=== PATIENT | male | born 1955 | race Caucasian/White ===

== ENCOUNTER 2017-08-07 10:26 | Emergency (ER) | payer OTHER, SELFPAY ==
[2017-08-07 10:27] VITALS: BP 146/87; PULSE 80; RESP 16; TEMP 36.4; O2SAT 97; BMI 34.4
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
[2017-08-07] MEDS: Cephalexin 250 MG Capsule 500 MG PO (11:05)
[2017-08-07] MEDS: Diphth,Pertuss(Acell),Tet Vac 0.5 ML Vial IM (11:06)
== END 2017-08-07 11:28 | disposition home or self-care (01) ==
PROVIDERS: Emergency Provider Emergency Medicine; Family Provider Family Medicine; PCP Family Medicine
DX: T23.072A Burn of unspecified degree of left wrist, initial encounter (principal); T31.0 Burns involving less than 10% of body surface; E11.9 Type 2 diabetes mellitus without complications; I10 Essential (primary) hypertension; E78.00 Pure hypercholesterolemia, unspecified
CPT/HCPCS: 90471; 90715; 99282

== ENCOUNTER → 2020-10-08 | Outpatient (REF) | payer MEDICARE, OTHER, SELFPAY ==
[2020-10-08 12:20] LABS: Hemoglobin 15.1 g/dL (13.0-16.5); Mean Corp Hgb Conc 32.8 g/dL (32-36); Mean Corpuscular Hgb 28.3 pg (27.0-32.0); Mean Corpuscular Volume 86.1 fL (80-94); Platelet Count 311 K/mm3 (150-450); RBC Distribution Width CV 12.6 % (11.6-14.6); RBC Distribution Width SD 39.2 fl (35.1-43.9); Red Blood Count 5.34 M/mm3 (4.6-6.2); White Blood Count 8.3 K/mm3 (4.4-11.0)
[2020-10-08 12:42] LABS: Vitamin D,25 Hydroxy 17.5 ng/mL
[2020-10-08 12:50] LABS: ALB/GLOB Ratio 1.1 RATIO (0.9-2.4); AST(SGOT) 15 U/L (15-37); Alanine Aminotransfer ALT/SGPT 29 U/L (16-61); Alkaline Phosphatase 72 U/L (45-117); Anion Gap 8 (5-15); BUN 15 mg/dL (7-18); Calcium,Total 9.2 mg/dL (8.5-10.1); Chloride 101 mmol/L (98-107); Cholesterol 144 mg/dL (200); Creatinine, Serum 0.88 mg/dL (0.70-1.30); EST Glomerular Filtration Rate 92 mL/min (>60); Est Glom Filt Rate - Afr Amer 111 mL/min (>60); Globulin 3.5 g/dL (2.2-4.2); Glucose 355 mg/dL (74-106); Hemoglobin A1c 12.7 % (3.8-5.6); High Density Lipoprotein 31 mg/dL; PSA,Total - Annual Screen 0.82 ng/mL (0.00-4.00); Potassium 4.3 mmol/L (3.5-5.1); Protein, Total 7.5 g/dL (6.4-8.2); Sodium Level 134 mmol/L (136-145); Triglycerides 441 mg/dL
== END | disposition home or self-care (01) ==
LOC: LABSPEC 12:04
PROVIDERS: PCP Family Medicine; Visit Provider Nurse Practitioner Family
DX: I10 Essential (primary) hypertension (principal); E11.9 Type 2 diabetes mellitus without complications; E66.9 Obesity, unspecified; E55.9 Vitamin D deficiency, unspecified; Z12.5 Encounter for screening for malignant neoplasm of prostate
CPT/HCPCS: 80053; 80061; 82306; 83036; 84153; 85027; G0103

== ENCOUNTER → 2021-09-02 | Outpatient (CLI) | payer MEDICARE, OTHER, SELFPAY ==
[2021-09-02 10:46] LABS: Absolute Lymphocyte Count 1.85 X10^3/uL (0.83-4.51); Absolute Neutrophil Count 4.8 X10^3/uL (2.0-7.7); Basophil# 0.09 X10^3/uL; Basophil% 1.2 % (0-1); Eosinophil# 0.14 X10^3/uL; Eosinophils% 1.8 % (0-5); Hematocrit 45.9 % (40-54); Lymphocyte # 1.85 X10^3/ul (0.83-4.51); Lymphocyte % 24.2 % (19-41); Mean Corp Hgb Conc 32.7 g/dL (32-36); Mean Corpuscular Hgb 28.2 pg (27.0-32.0); Mean Corpuscular Volume 86.3 fL (80-94); Mean Platelet Vol. 10.7 fl (6.2-12.0); Monocyte# 0.68 X10^3/uL; Monocyte% 8.9 % (0-10); NRBC Flagged by Analyzer 0 % (0-5); Neutrophil # 4.82 X10^3/uL (2.7-7.7); Neutrophil % 63.2 % (47-70); Platelet Count 301 K/mm3 (150-450); RBC Distribution Width SD 40.4 fl (35.1-43.9); Red Blood Count 5.32 M/mm3 (4.6-6.2); White Blood Count 7.6 K/mm3 (4.4-11.0)
[2021-09-02 10:57] LABS: ALB/GLOB Ratio 1.3 RATIO (0.9-2.4); AST(SGOT) 17 U/L (15-37); Alanine Aminotransfer ALT/SGPT 31 U/L (16-61); Albumin, Serum 4.2 g/dL (3.2-5.0); Alkaline Phosphatase 59 U/L (45-117); Anion Gap 10 (5-15); BUN 15 mg/dL (7-18); BUN/Creat Ratio 16.6 RATIO (10-20); Calcium,Total 9.8 mg/dL (8.5-10.1); Chloride 97 mmol/L (98-107); Cholesterol 120 mg/dL (200); EST Glomerular Filtration Rate 89 mL/min (>60); Est Glom Filt Rate - Afr Amer 108 mL/min (>60); Globulin 3.2 g/dL (2.2-4.2); Glucose 319 mg/dL (74-106); High Density Lipoprotein 33 mg/dL; Potassium 4.7 mmol/L (3.5-5.1); Protein, Total 7.4 g/dL (6.4-8.2); Sodium Level 135 mmol/L (136-145); Triglycerides 221 mg/dL; Very Low Density Lipoprotein 44 mg/dL (5-40)
[2021-09-02 11:01] LABS: Vitamin B12 454 pg/mL (211-911); Vitamin D,25 Hydroxy 27.5 ng/mL
[2021-09-02 11:04] LABS: Hemoglobin A1c 11.7 % (3.8-5.6)
== END | disposition home or self-care (01) ==
LOC: LABSPEC 10:25
PROVIDERS: PCP Family Medicine; Visit Provider Nurse Practitioner Family
DX: E11.9 Type 2 diabetes mellitus without complications (principal); I10 Essential (primary) hypertension; E55.9 Vitamin D deficiency, unspecified; E78.00 Pure hypercholesterolemia, unspecified
CPT/HCPCS: 80053; 80061; 82306; 82607; 83036; 85025

== ENCOUNTER → 2024-01-25 16:00 | Outpatient (REF) | payer MEDICARE, SELFPAY ==
[2024-01-26 12:57] LABS: Erythrocyte Sedimentation Rate 10 mm/hr (0-20)
[2024-01-26 12:59] LABS: Absolute Lymphocyte Count 1.72 X10^3/uL (0.83-4.51); Absolute Neutrophil Count 4.9 X10^3/uL (2.0-7.7); Basophil% 1.3 % (0-1); Eosinophil# 0.11 X10^3/uL; Eosinophils% 1.5 % (0-5); Hematocrit 41.6 % (40-54); Hemoglobin 13.6 g/dL (13.0-16.5); Lymphocyte # 1.72 X10^3/ul (0.83-4.51); Lymphocyte % 22.8 % (19-41); Mean Corp Hgb Conc 32.7 g/dL (32-36); Mean Corpuscular Hgb 28.6 pg (27.0-32.0); Mean Corpuscular Volume 87.4 fL (80-94); Mean Platelet Vol. 11.7 fl (6.2-12.0); Monocyte# 0.69 X10^3/uL; Monocyte% 9.2 % (0-10); NRBC Flagged by Analyzer 0 % (0-5); Neutrophil # 4.87 X10^3/uL (2.7-7.7); Neutrophil % 64.7 % (47-70); Platelet Count 281 K/mm3 (150-450); RBC Distribution Width CV 13.2 % (11.6-14.6); RBC Distribution Width SD 42.3 fl (35.1-43.9); Red Blood Count 4.76 M/mm3 (4.6-6.2); White Blood Count 7.5 K/mm3 (4.4-11.0)
[2024-01-26 13:06] LABS: Vitamin B12 344 pg/mL (211-911); Vitamin D,25 Hydroxy 15.2 ng/mL
[2024-01-26 13:19] LABS: ALB/GLOB Ratio 1.4 RATIO (0.9-2.4); AST(SGOT) 12 U/L (15-37); Alanine Aminotransfer ALT/SGPT 28 U/L (16-61); Albumin, Serum 4.1 g/dL (3.2-5.0); Alkaline Phosphatase 67 U/L (45-117); Anion Gap 6 (5-15); BUN 18 mg/dL (7-18); BUN/Creat Ratio 22.3 RATIO (10-20); CRP < 2.90 mg/L (0.0-3.0); Calcium,Total 9.6 mg/dL (8.5-10.1); Chloride 101 mmol/L (98-107); Cholesterol 112 mg/dL (200); Creatinine, Serum 0.81 mg/dL (0.70-1.30); EST Glomerular Filtration Rate 101 mL/min (>60); Est Glom Filt Rate - Afr Amer 122 mL/min (>60); Glucose 354 mg/dL (74-106); High Density Lipoprotein 31 mg/dL; Potassium 4.6 mmol/L (3.5-5.1); Protein, Total 7.1 g/dL (6.4-8.2); Sodium Level 136 mmol/L (136-145); Triglycerides 290 mg/dL; Very Low Density Lipoprotein 58 mg/dL (5-40)
[2024-01-27 11:09] LABS: ANTINUCLEAR ANTIBODIES DIRECT Negative (Negative); CRP, High Sensitivity 0.64 mg/L (0.00-3.00)
[2024-01-27 15:08] LABS: Lipoprotein A 16.1 nmol/L (<75.0)
== END ==
LOC: LABSPEC 16:00
PROVIDERS: PCP Family Medicine; Referring Provider Nurse Practitioner Family; Visit Provider Nurse Practitioner Family
DX: M25.511 Pain in right shoulder (principal); E11.9 Type 2 diabetes mellitus without complications; I10 Essential (primary) hypertension; L30.9 Dermatitis, unspecified; E78.5 Hyperlipidemia, unspecified; R53.83 Other fatigue; F32.A Depression, unspecified; G89.29 Other chronic pain
CPT/HCPCS: 80053; 80061; 82306; 82607; 82746; 83036; 83695; 85025; 85652; 86038; 86140; 86141; 86225; 86235

== ENCOUNTER → 2024-04-11 | Outpatient (CLI) | payer MEDICARE, SELFPAY ==
[2024-04-11 16:17] LABS: Absolute Lymphocyte Count 1.67 X10^3/uL (0.83-4.51); Absolute Neutrophil Count 4.4 X10^3/uL (2.0-7.7); Basophil% 1.4 % (0-1); Eosinophil# 0.11 X10^3/uL; Eosinophils% 1.6 % (0-5); Hematocrit 44.9 % (40-54); Hemoglobin 14.7 g/dL (13.0-16.5); Lymphocyte # 1.67 X10^3/ul (0.83-4.51); Lymphocyte % 24.2 % (19-41); Mean Corp Hgb Conc 32.7 g/dL (32-36); Mean Corpuscular Hgb 28.4 pg (27.0-32.0); Mean Corpuscular Volume 86.8 fL (80-94); Mean Platelet Vol. 10.9 fl (6.2-12.0); Monocyte# 0.58 X10^3/uL; Monocyte% 8.4 % (0-10); NRBC Flagged by Analyzer 0 % (0-5); Neutrophil % 63.8 % (47-70); Platelet Count 325 K/mm3 (150-450); RBC Distribution Width CV 13.3 % (11.6-14.6); RBC Distribution Width SD 42.2 fl (35.1-43.9); Red Blood Count 5.17 M/mm3 (4.6-6.2); White Blood Count 6.9 K/mm3 (4.4-11.0)
[2024-04-11 17:44] LABS: ALB/GLOB Ratio 1.1 RATIO (0.9-2.4); AST(SGOT) 20 U/L (15-37); Alanine Aminotransfer ALT/SGPT 30 U/L (16-61); Albumin, Serum 3.9 g/dL (3.2-5.0); Alkaline Phosphatase 62 U/L (45-117); Anion Gap 8 (5-15); BUN 13 mg/dL (7-18); Calcium,Total 10.5 mg/dL (8.5-10.1); Chloride 98 mmol/L (98-107); Cholesterol 236 mg/dL (200); EST Glomerular Filtration Rate 79 mL/min (>60); Est Glom Filt Rate - Afr Amer 95 mL/min (>60); Globulin 3.6 g/dL (2.2-4.2); Glucose 406 mg/dL (74-106); High Density Lipoprotein 40 mg/dL; Potassium 4.9 mmol/L (3.5-5.1); Protein, Total 7.5 g/dL (6.4-8.2); Sodium Level 135 mmol/L (136-145); Triglycerides 356 mg/dL; Very Low Density Lipoprotein 71 mg/dL (5-40)
[2024-04-12 15:32] LABS: Vitamin B12 458 pg/mL (211-911)
[2024-04-14 14:41] LABS: Vitamin D,25 Hydroxy 68.7 ng/mL
== END | disposition home or self-care (01) ==
LOC: LABSPEC 15:08
PROVIDERS: PCP Family Medicine; Referring Provider Nurse Practitioner Family; Visit Provider Nurse Practitioner Family
DX: M25.511 Pain in right shoulder (principal); E11.9 Type 2 diabetes mellitus without complications; I10 Essential (primary) hypertension; L30.9 Dermatitis, unspecified; E78.5 Hyperlipidemia, unspecified; R53.83 Other fatigue; F32.A Depression, unspecified; G89.29 Other chronic pain; E55.9 Vitamin D deficiency, unspecified
CPT/HCPCS: 80053; 80061; 82306; 82607; 82746; 83036; 85025

== ENCOUNTER → 2024-05-26 | Outpatient (CLI) | payer MEDICARE, OTHER, SELFPAY ==
[2024-05-26 09:10] LABS: Absolute Lymphocyte Count 1.47 X10^3/uL (0.83-4.51); Basophil# 0.07 X10^3/uL; Basophil% 1.3 % (0-1); Eosinophil# 0.11 X10^3/uL; Eosinophils% 2.1 % (0-5); Hemoglobin 13.9 g/dL (13.0-16.5); Lymphocyte # 1.47 X10^3/ul (0.83-4.51); Lymphocyte % 28.1 % (19-41); Mean Corp Hgb Conc 33.9 g/dL (32-36); Mean Corpuscular Hgb 28.1 pg (27.0-32.0); Monocyte# 0.55 X10^3/uL; Monocyte% 10.5 % (0-10); NRBC Flagged by Analyzer 0 % (0-5); Neutrophil # 2.99 X10^3/uL (2.7-7.7); Platelet Count 274 K/mm3 (150-450); RBC Distribution Width CV 13.2 % (11.6-14.6); RBC Distribution Width SD 39.9 fl (35.1-43.9); Red Blood Count 4.94 M/mm3 (4.6-6.2); White Blood Count 5.2 K/mm3 (4.4-11.0)
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
[2024-05-26 11:53] LABS: Syphilis Antibodies Nonreactive (Nonreactive)
== END | disposition home or self-care (01) ==
PROVIDERS: Referring Provider Ophthalmology; Visit Provider Ophthalmology
DX: H20.00 Unspecified acute and subacute iridocyclitis (principal); H18.232 Secondary corneal edema, left eye
CPT/HCPCS: 36415; 71046; 81374; 82164; 85025; 86780

== ENCOUNTER 2025-02-10 06:17 | Day surgery (SDC) | payer OTHER, SELFPAY ==
--- NOTE | 2025-02-09 16:20 | PAT.ANE_ITS ---
Pre-Assessment Diagnosis/Proposed Procedure Planned Operative Procedure(s): Colonoscopy Anesthesia History Anesthesia History - educational psychologist: Anesthesia History - educational psychologist Hx Hospitalization No 02/09/25 09:56 Any Problems With Anesthesia No 02/09/25 09:56 Cholinesterase deficiency No 02/09/25 09:56 You/Your Family Experience No 02/09/25 09:56 fever (hyperthermia) with Relationship Recent Exposure to Contagious No 01/24/14 06:12 Disease Does patient have nerve No 02/09/25 09:56 stimulator Patient instructed to have device shut off --Does patient have Pacemaker or ICD? When Was Last Pacemaker Check QUESTION #4 FULL TEXT: You/Your Family Experience fever (hyperthermia) with Anesthesia Last Oral Intake Last Oral intake: Last Oral Intake NPO since Meds taken in AM with sips of water? Meds patient instructed to take am of surgery PONV PONV - educational psychologist: PONV - educational psychologist Female No 02/09/25 09:56 HX of Motion Sickness No 02/09/25 09:56 HX of N/V After Surgery No 02/09/25 09:56 Non-Smoker Yes 02/09/25 09:56 Duration of Surgery greater No 02/09/25 09:56 than 60 minutes Number of Risk Factors 1 02/09/25 09:56 PONV Score Low Risk 02/09/25 09:56 Height & Weight Height & Weight: Anesthesia: Height & Weight Height 5 ft 4 in 01/02/25 10:02 Respiratory Assessment Respiratory Assessment - educational psychologist: Respiratory Tract Infection Hx - educational psychologist Hx Respiratory Tract Infection No 02/09/25 09:56 STOP Sleep Apnea STOP Sleep Apnea - educational psychologist: STOP Sleep Apnea - educational psychologist Hx Hypertension Yes: ON MEDS -CONTROLLED 02/09/25 09:56 Hx Sleep Apnea No 02/09/25 09:56 CPAP No 01/24/14 09:36 BIPAP No 01/16/14 09:14 Do you snore loudly (louder No 02/09/25 09:56 than talking or can be heard Do you often feel tired/ No 02/09/25 09:56 fatigued/ sleepy during daytime? Has anyone observed you stop No 02/09/25 09:56 breathing during sleep? STOP Results Negative 02/09/25 09:56 QUESTION #5 FULL TEXT : Do you snore loudly (louder than talking or can be heard through closed doors)? 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 Specify any problems Hx of Preganancy in last 3 N/A 02/09/25 09:56 Months Nurse Filling Out Transfusion [email or web address] 02/09/25 09:56 & Questions: Date: 02/09/25 02/09/25 09:56 Time: 09:58 02/09/25 09:56 Patient unable to answer at this time (ie. confused, unrespo /Reproduction History /Reproductive History - educational psychologist: /Reproductive Hx- educational psychologist Hx Now No 02/09/25 09:56 Gestational Age (in weeks): EDC: Hx Hx Para Hx Section SAB No 02/09/25 09:56 Does the father of the baby or his family experience fever w Father of the baby Malignant Hypertension history comment [facility] Medical History (Updated 02/09/25 @ 09:56 by Irene Simmons) Wears glasses Rash Arthritis Dietary restriction Non-smoker Colon cancer screening HTN (hypertension) Diabetes High cholesterol Home Medications ?Medication ?Instructions ?Recorded ?Last Taken ?Type atenolol 25 mg tablet 25 mg PO DAILY 03/25/13 1204/08 05:00 History metformin 1,000 mg tablet 1,000 mg PO BID 03/25/13 Unk nown History aspirin 81 mg tablet,delayed 81 mg PO DAILY@0800 07/06 Unknown History release fenofibrate nanocrystallized 145 145 mg PO QHS 4 Unknown History mg tablet atorvastatin 40 mg tablet (Lipitor) 40 mg PO QDAY 12/24 Unknown History empagliflozin 25 mg tablet 25 mg PO QAM 01/02/25 Unkno wn History glipizide 10 mg tablet 10 mg PO QDAY 01/02/25 Unkno wn History insulin glargine 100 unit/mL 10 unit subcut QPM Unknown History subcutaneous solution (Lantus U-100 Insulin) lisinopril 20 1 tab PO QDAY 01/02/25 Unkno wn History mg-hydrochlorothiazide 12.5 mg tablet Allergy/AdvReac Type Severity Reaction Status Date / Time No Known Allergies Allergy Verified 02/09/25 09:48 Family History (Updated 01/02/25 @ 10:02 by Zena Clark) Father Heart disease Brother No problems noted. Surgical History (Updated 01/02/25 @ 10:01 by Zena Clark) Status post replacement of left shoulder joint S/P right knee arthroscopy S/P bilateral inguinal hernia repair Social History (Updated 01/02/25 @ 10:02 by Zena Clark) Smoking Status: Never smoker Smokeless tobacco user: chewing tobacco alcohol intake: never Audit: Pertinent Findings Pertinent Findings EKG Perinent findings: EKG 07/06/2013. Normal sinus rhythm. Normal EKG. Recommendation Anesthesia Recommendation Anesthesia recommendation: OPTIMIZED for anesthesia
[2025-02-10] VITALS (8 sets, daily range): BP systolic 103–147; BP diastolic 70–85; PULSE 80–86; RESP 16–18; TEMP 36.2–36.3; O2SAT 93–96; BMI 27.8
--- OUTSIDE RECORDS SUMMARY | 2025-02-10 06:19 | XMS RPT_ITS | CCD ---
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 Luke Primary Care Provider Evens CAMPOS-CZuleyma Attending Provider Unava ilmarjorie Horner PREPARED FOODS SUPERVISOR-CZuleyma Referring Provider [facility] Care Physician, No Primary Primary Care Provider Unavailable Bruno JEONG, Dr. Maurer Attending Provider Dr. Erasto Carr MD Referring Provider [phone] Care Physician, No Primary Referring [facility], [place] Primary Care Unavailable Yordan Silveira Attending Unavailable Care Physician, No Primary [facility] Attending Unavailable Erasto Carr Referring Unavailable [facility], [place] Primary Care Unavailable Yordan Silveira Attending Unavailable Ti Russell Primary Care Unavailable Zuleyma Horner NP Attending Zuleyma Petersen NP Referring UnavailTi Ghosh Primary Care Unavailable Zuleyma Horner NP Attending UnavailZuleyma Crystal NP Referring Unavailabl e Medications Current Medications Medication Drug Class(es) Dates Sig (Normalized) Sig (Original) acetaminophen 325 mg / oxyCODONE hydrochloride 5 mg oral tablet (1 source) Opioid Agonist Start: 4 Oxycodone-Acetaminop hen 1 TABLET tablet Active 1 - 2 {tbl} PO EVERY 4 HOURS NEEDED as needed for Pain 60 January 24, 2014 1:00am alogliptin 25 mg / pioglitazone 30 mg oral tablet (1 source) Peroxisome Proliferator Receptor alpha Agonist, Peroxisome Proliferator Receptor gamma Agonist, Thiazolidinedione Start: 4 Alogliptin-Pioglitaz one (Oseni 25-30 Mg Tablet) 1 EACH tablet Active 1 NMA PO DAILY January 16, 2014 1:00am aspirin 81 mg delayed release oral tablet (1 source) Platelet Aggregation Inhibitor, Nonsteroidal Anti-inflammatory Drug Start: 4 take 1 tablet by mouth once daily Aspirin 81 MG tablet Active 81 mg PO DAILY@0800 July 06, 2013 12:00am atenolol 25 mg oral tablet (1 source) beta-Adrenergic Camelia Start: 4 take 1 tablet by mouth once daily Atenolol 25 MG tablet Active 25 mg PO DAILY March 25, 2013 1:00am cephalexin 500 mg oral capsule (1 source) Cephalosporin Antibacterial Start: 8 take 1 capsule by mouth every six hours Cephalexin 500 MG capsule Active 500 mg PO EVERY 6 HOURS August 07, 2017 12:00am docusate sodium 100 mg oral capsule (1 source) Start: 4 take 1 capsule by mouth twice daily as needed for constipation Docusate Sodium (Colace) 100 MG capsule Active 100 mg PO TWICE DAILY NEEDED as needed for Constipation January 24, 2014 1:00am fenofibrate 145 mg oral tablet (1 source) Peroxisome Proliferator Receptor alpha Agonist Start: 4 take 1 tablet by mouth at bedtime Fenofibrate Nanocrystallized 145 MG tablet Active 145 mg PO AT BEDTIME July 06, 2013 12:00am lisinopril 5 mg oral tablet (1 source) Angiotensin Converting Enzyme Inhibitor Start: 4 take 1 tablet by mouth once daily Lisinopril 5 MG tablet Active 5 mg PO DAILY March 25, 2013 1:00am metFORMIN hydrochloride 1000 mg oral tablet (1 source) Biguanide Start: 4 take 1 tablet by mouth twice daily Metformin 1,000 MG tablet Active 1000 mg PO TWICE A DAY March 25, 2013 1:00am promethazine hydrochloride 25 mg oral tablet (1 source) Phenothiazine Start: 4 take 1 tablet by mouth every four hours as needed for nausea Promethazine 25 MG tablet Active 25 mg PO EVERY 4 HOURS NEEDED as needed for Nausea January 24, 2014 1:00am simvastatin 5 mg oral tablet (1 source) HMG-CoA Reductase Inhibitor Start: 4 take 1 tablet by mouth at bedtime Simvastatin (Zocor) 5 MG tablet Active 5 mg PO AT BEDTIME March 25, 2013 1:00am traMADol hydrochloride 50 mg oral tablet (1 source) Opioid Agonist Start: 4 take 1 tablet by mouth once daily Tramadol 50 MG tablet Active 50 mg PO DAILY July 06, 2013 12:00am Problems Active Problems Problem Classification Problem Date Documented Da te Episodic/Chronic Inflammation; infection of eye (except that caused by tuberculosis or sexually transmitteddisease) (1 source) Unspecified acute and subacute iridocyclitis; Translations: [Unspecified acute and subacute iridocyclitis] Onset: 12-21-2024 Episodic Other injuries and conditions due to external causes (1 source) Injury of shoulder region; Translations: [Unspecified injury of shoulder and upper arm, unspecified arm, initial encounter] 03-25-2013 Episodic Past or Other Problems Problem Classification Problem Date Documented Da te Episodic/Chronic Other non-traumatic joint disorders (1 source) Pain in right shoulder; Translations: [Pain in right shoulder] Onset: 04-26-2024 Episodic Results Test Name Value Interpretation Reference Range Facility Surgery Visit Reporton 01-02 Surgery Visit Report [facility] [facility] [place] [address] OFFICE VISIT Date of Service: 01/02/25 MR#: [id number] Acct: [id number] Name: LAMBERTO TEJADA Rep #: [id number] : 1955 Provider: Dr. Yordan avalos MD Age/Sex: 69/M Location: [facility] Status: Signed Intake Vital Signs 08/07/17 10:27 01/02/25 10:02 Height 5 ft 4 in 5 ft 4 in Weight: 167 lb BMI 28.6 BP 166/82 H Blood Pressure Location Rt brachial Position Sitting Respiration 16 Intake Visit Reasons: COLONOSCOPY Chief Complaint: c-scope Teller Coordinator Required: No Is patient in pain?: No Allergies No Known Allergies Allergy (Verified 01/02/25 10:03) Medications ???Medication ???Instructions ???Recorded ???Confirmed ???Type atenolol 25 mg tablet 25 mg PO DAILY 03/25/13 01/02/25 H istory metformin 1,000 mg tablet 1,000 mg PO BID 03/25/13 01/02/25 History aspirin 81 mg tablet,delayed 81 mg PO DAILY@0800 07/06/1301/02 History release fenofibrate nanocrystallized 145 145 mg PO QHS 07/06/13 01/02/25 Hi story mg tablet atorvastatin 40 mg tablet (Lipitor) 40 mg PO QDAY 01/02/25 01/02/25 History empagliflozin 25 mg tablet 25 mg PO QAM 01/02/25 01/02/25 His tory glipizide 10 mg tablet 10 mg PO QDAY 01/02/25 01/02/25 Hi story insulin glargine 100 unit/mL 10 unit subcut QPM 01/02/25 History subcutaneous solution (Lantus U-100 Insulin) lisinopril 20 1 tab PO QDAY 01/02/25 01/02/25 Hi story mg-hydrochlorothiazid e 12.5 mg tablet Have you fallen in the past year?: No PFSH Medical History (Updated 01/02/25 @ 12:[address] Yordan Silveira MD) Colon cancer screening HTN (hypertension) Diabetes High cholesterol Surgical History (Updated 01/02/25 @ 10:01 by Zena Clark) Status post replacement of left shoulder joint S/P right knee arthroscopy S/P bilateral inguinal hernia repair Family History (Updated 01/02/25 @ 10:02 by Zena Clark) Father Heart disease Brother No problems noted. Social History (Updated 01/02/25 @ 10:02 by Zena Clark) Smoking Status: Never smoker Smokeless tobacco user: chewing tobacco alcohol intake: never HPI HPI HPI: The patient is a 69-year-old male who is being seen today to schedule colonoscopy. He has never had a colonoscopy previously. He denies any GI issues or complaints. No blood in his stools. No black or tarry stools. No family history of colon polyps or colon cancers to his knowledge ROS General General: No weight change, appetite, fatigue, colon cancer, breast cancer or weakness HEENT HEENT: No difficulty swallowing, eye injury, eye surgery, swollen glands or hoarseness Endo Endocrine: Yes diabetes mellitus; No thyroid disease, thyroid cancer, Hair loss, heat intolerance or cold intolerance Skin Skin: Yes rash; No changing moles Breast Breast: No left breast lump, right breast lump, nipple discharge, breast pain, abnormal mammogram, abnormal US or breast enlargement Musc Musculoskeletal: Yes arthritis; No back problems, rheumatoid arthritis, gout or joint pain Cardio Cardiovascular: Yes high blood pressure; No murmur, pacemaker, heart disease, atrial fibrillation, heart attack, heart stent, palpitations, shortness of breath with exertion or chest pain Psych Psychiatric: No depression, anxiety or hearing voices Resp Respiratory: No shortness of breath, No sleep apnea, No cough, No COPD, No asthma, No emphysema and No wheezing Gastro Gastrointestinal: No abdominal pain, No nausea or vomiting, No diarrhea, No constipation, No blood in stool, No acid reflux, No hemorrhoids, No ulcers, No gallbladder problem and No black,tarry stools Lazaro Hematologic: Yes blood thinners, No blood disorders, No bleeding, No anemia and No blood clots Neuro Neurologic: No system reviewed and no additional complaints, except as documented, No as per HPI, No abnormal gait, No abnormal hearing, No abnormal movements, No abnormal speech, No behavioral changes, No burning sensations, No confusion, No convulsions, No disequilibrium, No dizziness, No localized weakness, No frequent falls, No headache(s), No lack of coordination, No loss of vision, No memory loss, Yes numbness, No other visual disturbances, No radicular pain, No restless legs, No sensory deficit, No syncope, Yes tingling, No tremor(s), No weakness and No other Exam Const General: cooperative, comfortable and no acute distress [facility] Head: normal to inspection Eyes General: appearance normal, both eyes and all related structures Neck Neck: normal visual inspection Resp Effort Inspection: normal respiratory effort and able to speak in complete sentences Assessment and Plan Assessment and Plan (1) Colon cancer screening: Status: Ac (more content not included)... Normal [facility] Angiotensin Convert Enzymeon 06-03-2024 ANGIOT-CONV.ENZ < 15 Normal 14-[address] [facility] Comment on above: Performed By: #### L 506.1000, L500.4050, L500.4100, L100.0100, L501.9985, L506.0250, L503.0105 #### [facility] [address] [place], [address] HLA B27on 06-03-2024 HLA B27 Negative Normal . [facility] Comment on above: Result Comment: HLA- B*27 Negative B27 allele interpretation for all loci based on IMGT/HLA database version 3.58 This test was developed and its performance characteristics determined by [facility]. It has not been cleared or approved by the Food and Drug Administration. The FDA has determined that such clearance or approval is not necessary. [facility] CLIA ID Number [id number] This test was performed using Polymerase Chain Reaction (PCR) and Sequence Specific Oligonucleotide Probes (SSOP) technique. Sequence Based Typing (SBT) may be used as a supplemental method when necessary. If you have questions, please call HLA customer service at or email at [email or web address]. Performed By: #### L 506.1000, L500.4050, L500.4100, L100.0100, L501.9985, L506.0250, L503.0105 #### [facility] [address] [place], [address] Treponema palladium Ab (FTA) on 05-31-2024 T PALLIDUM-FTA Normal [facility] Comment on above: Result Comment: TEST RESULTS LIMITS Treponema pallidum Antibodies Non Reactive Non Reactive TESTING PERFORMED AT [facility]. ORIGINAL REPORT ON FILE IN LAB CONTAINS ADDITIONAL TEST SITE INFORMATION. Performed By: #### L 506.1000, L500.4050, L500.4100, L100.0100, L501.9985, L506.0250, L503.0105 #### [facility] [address] [place], [address] [facility].on 05-30-2024 [facility] Misc. COMMENT Normal . [facility] Comment on above: Order Comment: [id number] LYSOZYME TIGER RT Result Comment: Test Ordered: [id number] Lysozyme, Serum Lysozyme, Serum 6.6 ug/mL Reference Range: 3.6-8.1 Performed at: - [address] [id number] Transfusion Nurse: Oswaldo Mayer MD, Phone: [phone] Performed at: [facility] [address] [id number] Transfusion Nurse: Rory Mejias PhD, Phone: [phone] Performed By: #### L 509.8002, L3100.6900, L100.0100, L801.4400, L3410.1400, L3410.9998 #### [facility] [address] [place], [address] Absolute neutrophil countOrd ered By: Erasto Carr on 05-26-2024 Neutrophils (Bld) [#/Vol] 3.0 10*3/uL 2.0-7.[address] [facility] Basophil percentageOrdered B y: Erasto Carr on 05-26-2024 Basophils/100 WBC (Bld) 1.3 % High 0-1 [facility] CBC W/Diff, Automatedon 04- Absolute Lymph 1.47 X10 3/uL Normal 0.83-4.[address] [facility] Comment on above: Performed By: #### L 509.8002, L3100.6900, L100.0100, L801.4400, L3410.1400, L3410.9998 #### [facility] [address] [place], [place], [address] Absolute Neut 3.0 X10 3/uL Normal 2.0-7.[address] [facility] Comment on above: Performed By: #### L 509.8002, L3100.6900, L100.0100, L801.4400, L3410.1400, L3410.9998 #### [facility] [address] [place], [address] Basophils/100 WBC (Bld) 1.3 % High 0-1 [facility] Comment on above: Performed By: #### L 509.8002, L3100.6900, L100.0100, L801.4400, L3410.1400, L3410.9998 #### [facility] [address] [place], [address] Eosinophils/100 WBC (Bld) 2.1 % Normal 0-[address] [facility] Comment on above: Performed By: #### L 509.8002, L3100.6900, L100.0100, L801.4400, L3410.1400, L3410.9998 #### [facility] [address] [place], [address] Erythrocyte distribution width (RBC) [Ratio] 13.2 % Normal 11.6-14.[address] [facility] Comment on above: Performed By: #### L 509.8002, L3100.6900, L100.0100, L801.4400, L3410.1400, L3410.9998 #### [facility] [address] [place], [address] Hematocrit (Bld) [Volume fraction] 41.0 % Normal 40-[address] [facility] Comment on above: Performed By: #### L 509.8002, L3100.6900, L100.0100, L801.4400, L3410.1400, L3410.9998 #### [facility] [address] [place], [address] Hemoglobin (Bld) [Mass/Vol] 13.9 g/dL Normal 13.0-16.[address] [facility] Comment on above: Performed By: #### L 509.8002, L3100.6900, L100.0100, L801.4400, L3410.1400, L3410.9998 #### [facility] [address] [place], [address] IG% 1.000 High 0.0-0.[address] [facility] Comment on above: Result Comment: IG% - Immature Granulocytes (promyelocytes, myelocytes and metamyelocytes) > 1% indicates that a LEFT SHIFT is Present. Performed By: #### L 509.8002, L3100.6900, L100.0100, L801.4400, L3410.1400, L3410.9998 #### [facility] [address] [place], [address] Lymphocytes/100 WBC (Bld) 28.1 % Normal 19-[address] [facility] Comment on above: Performed By: #### L 509.8002, L3100.6900, L100.0100, L801.4400, L3410.1400, L3410.9998 #### [facility] [address] [place], [address] MCH (RBC) [Entitic mass] 28.1 pg Normal 27.0-32.[address] [facility] Comment on above: Performed By: #### L 509.8002, L3100.6900, L100.0100, L801.4400, L3410.1400, L3410.9998 #### [facility] [address] [place], [address] MCHC (RBC) [Mass/Vol] 33.9 g/dL Normal 32-36 [facility] Comment on above: Performed By: #### L 509.8002, L3100.6900, L100.0100, L801.4400, L3410.1400, L3410.9998 #### [facility] [address] [place], [address] MCV (RBC) [Entitic vol] 83.0 fL Normal 80-94 [facility] Comment on above: Performed By: #### L 509.8002, L3100.6900, L100.0100, L801.4400, L3410.1400, L3410.9998 #### [facility] [address] [place], [address] Monocytes/100 WBC (Bld) 10.5 % High 0-10 [facility] Comment on above: Performed By: #### L 509.8002, L3100.6900, L100.0100, L801.4400, L3410.1400, L3410.9998 #### [facility] [address] [place], [address] Neutrophils/100 WBC (Bld) 57.0 % Normal 47-[address] [facility] Comment on above: Performed By: #### L 509.8002, L3100.6900, L100.0100, L801.4400, L3410.1400, L3410.9998 #### [facility] [address] [place], [address] Nucleated RBC (Bld) [#/Vol] 0 10*3/uL Normal 0-[address] [facility] Comment on above: Performed By: #### L 509.8002, L3100.6900, L100.0100, L801.4400, L3410.1400, L3410.9998 #### [facility] [address] [place], [address] Platelet mean volume (Bld) [Entitic vol] 10.0 fL Normal 6.2-12.[address] [facility] Comment on above: Performed By: #### L 509.8002, L3100.6900, L100.0100, L801.4400, L3410.1400, L3410.9998 #### [facility] [address] [place], [address] Platelets (Bld) [#/Vol] 274 10*3/uL Normal 150-[address] [facility] Comment on above: Performed By: #### L 509.8002, L3100.6900, L100.0100, L801.4400, L3410.1400, L3410.9998 #### [facility] [address] [place] [place], [address] RBC (Bld) [#/Vol] 4.94 10*6/uL Normal 4.6-6.2 [facility] Comment on above: Performed By: #### L 509.8002, L3100.6900, L100.0100, L801.4400, L3410.1400, L3410.9998 #### [facility] [address] [place], [address] RDW SD 39.9 fl Normal 35.1-43.[address] [facility] Comment on above: Performed By: #### L 509.8002, L3100.6900, L100.0100, L801.4400, L3410.1400, L3410.9998 #### [facility] [address] [place] [place], [address] WBC (Bld) [#/Vol] 5.2 10*3/uL Normal 4.4-11.0 [facility] Comment on above: Performed By: #### L 509.8002, L3100.6900, L100.0100, L801.4400, L3410.1400, L3410.9998 #### [facility] [address] [place], [address] Chest PA and Lateralon 05-26 Chest PA and Lateral [facility] [address] [place] [address] Chest PA and Lateral MR#: [id number] Acct: [id number] Name: LAMBERTO TEJADA Rep #: [id number] : 1955 M 69 From: Almas Mcqueen MD PCP: Care Physician,No Primary Status: REG CLI Study: Chest PA and Lateral Date of Exam: 05/26/24 Exam# [id number] Ordering Dr: Erasto Carr MD PROCEDURE: CHEST PA AND LATERAL 05/26/2024 REASON FOR EXAM: ACUTE UVEITIS/CORNEAL EDEMA TECHNIQUE: Frontal and lateral views of the chest. COMPARISON: None available FINDINGS: The lungs appear clear. Pulmonary vascularity appears within limits. No pleural effusion. The cardiac and mediastinal contours appear within limits. Suggestion of bilateral shoulder osteoarthrosis. RAD/Chest PA and Lateral IMPRESSION: No evidence of acute disease. Reading Location: [id number] CC: Dr. Erasto Carr MD; No Primary Care Physician [employer]: Signed Normal [facility] Eosinophil percentageOrdered By: Erasto Carr on 05-26-2024 Eosinophils/100 WBC (Bld) 2.1 % 0-[address] [facility] Erythrocyte distribution wid th (RBC) [Ratio]Ordered By: Erasto Carr on 05-26-2024 Erythrocyte distribution width (RBC) [Entitic vol] 39.9 fL 35.1-43.[address] [facility] Erythrocyte distribution wid th ratioOrdered By: Erasto Carr on 05-26-2024 Erythrocyte distribution width (RBC) [Ratio] 13.2 % 11.6-14.[address] [facility] Hematocrit Auto (Bld) [Volum e fraction]Ordered By: Erasto Carr on 05-26-2024 Hematocrit (Bld) [Volume fraction] 41.0 % 40-[address] [facility] Hemoglobin measurementOrdere d By: Erasto Carr on 05-26-2024 Hemoglobin (Bld) [Mass/Vol] 13.9 g/dL 13.0-16.[address] [facility] Immature granulocytes/100 WB C Auto (Bld)Ordered By: Erasto Carr on 05-26-2024 Immature granulocytes/100 WBC (Bld) 1.000 % High 0.0-0.[address] [facility] Comment on above: IG% - Immature Granu locytes (promyelocytes, myelocytes and metamyelocytes) > 1% indicates that a LEFT SHIFT is Present. Lymphocytes Auto (Unsp spec) [#/Vol]Ordered By: Erasto Carr on 05-26-2024 Lymphocytes (Bld) [#/Vol] 1.47 10*3/uL 0.83-4.[address] [facility] Lymphocytes/100 WBC Auto (Un sp spec)Ordered By: Erasto Carr on 05-26-2024 Lymphocytes/100 WBC (Bld) 28.1 % 19-[address] [facility] MCV (mean corpuscular volume ) determinationOrdered By: Erasto Carr on 05-26-2024 MCV (RBC) [Entitic vol] 83.0 fL 80-94 [facility] Mean corpuscular hemoglobin (MCH) determinationOrdered By: Erasto Carr on 05-26-2024 MCH (RBC) [Entitic mass] 28.1 pg 27.0-32.[address] [facility] Mean corpuscular hemoglobin concentration (MCHC) determinationOrdered By: Erasto Carr on 05-26-2024 MCHC (RBC) [Mass/Vol] 33.9 g/dL 32-36 [facility] Mean platelet volume determi nationOrdered By: Erasto Carr on 05-26-2024 Platelet mean volume (Bld) [Entitic vol] 10.0 fL 6.2-12.[address] [facility] Monocyte percentageOrdered B y: Erasto Carr on 05-26-2024 Monocytes/100 WBC (Bld) 10.5 % High 0-10 [facility] Neutrophil percentageOrdered By: Erasto Carr on 05-26-2024 Neutrophils/100 WBC (Bld) 57.0 % 47-[address] [facility] Nucleated red blood cell per centageOrdered By: Erasto Carr on 05-26-2024 Nucleated RBC/100 WBC (Bld) [Ratio] 0 % 0-[address] [facility] Platelet countOrdered By: Mich Carr on 05-26-2024 Platelets (Bld) [#/Vol] 274 10*3/uL 150-[address] [facility] RBC Auto (Bld) [#/Vol]Ordere d By: Erasto Carr on 05-26-2024 RBC (Bld) [#/Vol] 4.94 10*6/uL 4.6-6.2 [facility] Syphilis Antibodieson 2024 Syphilis Abs Non-Reactive Normal Nonreactive [facility] Comment on above: Performed By: #### L 509.8002, L3100.6900, L100.0100, L801.4400, L3410.1400, L3410.9998 #### [facility] [address] [place], [address] T. pallidum Ab IF Ql (S)Orde red By: Erasto Carr on 05-26-2024 Treponema pallidum Ab (FTA-ABS) See comment [facility] Comment on above: TEST RESULTS LIMITST reponema pallidumAntibodies Non Reactive Non Reactive TESTING PERFORMED AT [facility]. ORIGINAL REPORT ON FILE IN LAB CONTAINS ADDITIONAL TEST SITE INFORMATION. T. pallidum abOrdered By: Mich Carr on 05-26-2024 Syphilis Total Antibody Non-Reactive Nonreactiv e [facility] White blood cell (WBC) count Ordered By: Erasto Carr on 05-26-2024 WBC (Bld) [#/Vol] 5.2 10*3/uL 4.4-11.0 [facility] Vitamin D,25 Hydroxyon 04-14 Vitamin D 25-OH 68.7 ng/mL Normal [facility] Comment on above: Result Comment: Edna min D 25(OH) Status Range Deficiency <20 ng/mL (50nmol/L) Insufficiency 20 - 30 ng/mL (50 - 75 nmol/L) Sufficiency 30 - 100 ng/mL (75 - 250 nmol/L) Toxicity >100 ng/mL (>250 nmol/L) Performed By: #### L 506.1000, L500.4050, L500.4100, L100.0100, L501.9985, L506.0250, L503.0105 #### [facility] Laboratory [address] [place], [address] Vitamin B12on 04-12-2024 Cobalamin (Vitamin B12) [Mass/Vol] 458 pg/mL Normal 211-[address] [facility] Comment on above: Performed By: #### L 506.1000, L500.4050, L500.4100, L100.0100, L501.9985, L506.0250, L503.0105 #### [facility] Laboratory [address] [place], [address] [id number] DOrdered By: Alexys Horner on 04-11-2024 Vitamin D 25-Hydroxy 68.7 ng/mL [facility] Comment on above: Vitamin D 25(OH) Sta tus Range Deficiency <20 ng/mL (50nmol/L) Insufficiency 20 - 30 ng/mL (50 - 75 nmol/L) Sufficiency 30 - 100 ng/mL (75 - 250 nmol/L) Toxicity >100 ng/mL (>250 nmol/L) Absolute neutrophil countOrd ered By: Zuleyma Horner on 04-11-2024 Neutrophils (Bld) [#/Vol] 4.4 10*3/uL 2.0-7.[address] [facility] Albumin to globulin ratioOrd ered By: Zuleyma Horner on 04-11-2024 Albumin/Globulin [Mass ratio] 1.1 {ratio} 0.9-2.[address] [facility] Basophil percentageOrdered B y: Zuleyma Horner on 04-11-2024 Basophils/100 WBC (Bld) 1.4 % High 0-1 [facility] Bilirubin, totalOrdered By: Zuleyma Horner on 04-11-2024 Bilirubin [Mass/Vol] 0.60 mg/dL 0.20-1.00 [facility] Comment on above: For patients on eltr ombopag therapy, use of Dimension [place] TBIL is not recommended. Blood urea nitrogen (BUN)/cr eatinine ratioOrdered By: Zuleyma Horner on 04-11-2024 Urea nitrogen/Creatinine [Mass ratio] 13.0 mg/mg 10-[address] [facility] CBC W/Diff, Automatedon - Absolute Lymph 1.67 X10 3/uL Normal 0.83-4.[address] [facility] Comment on above: Performed By: #### L 506.1000, L500.4050, L500.4100, L100.0100, L501.9985, L506.0250, L503.0105 #### [facility] Laboratory [address] [place], [address] Absolute Neut 4.4 X10 3/uL Normal 2.0-7.[address] [facility] Comment on above: Performed By: #### L 506.1000, L500.4050, L500.4100, L100.0100, L501.9985, L506.0250, L503.0105 #### [facility] Laboratory [address] [place], [address] Basophils/100 WBC (Bld) 1.4 % High 0-1 [facility] Comment on above: Performed By: #### L 506.1000, L500.4050, L500.4100, L100.0100, L501.9985, L506.0250, L503.0105 #### [facility] Laboratory [address] [place], [address] Eosinophils/100 WBC (Bld) 1.6 % Normal 0-[address] [facility] Comment on above: Performed By: #### L 506.1000, L500.4050, L500.4100, L100.0100, L501.9985, L506.0250, L503.0105 #### [facility] Laboratory [address] [place], [address] Erythrocyte distribution width (RBC) [Ratio] 13.3 % Normal 11.6-14.[address] [facility] Comment on above: Performed By: #### L 506.1000, L500.4050, L500.4100, L100.0100, L501.9985, L506.0250, L503.0105 #### [facility] [address] [facility] [place], [address] Hematocrit (Bld) [Volume fraction] 44.9 % Normal 40-[address] [facility] Comment on above: Performed By: #### L 506.1000, L500.4050, L500.4100, L100.0100, L501.9985, L506.0250, L503.0105 #### [facility] Laboratory [address] [place], [address] Hemoglobin (Bld) [Mass/Vol] 14.7 g/dL Normal 13.0-16.[address] [facility] Comment on above: Performed By: #### L 506.1000, L500.4050, L500.4100, L100.0100, L501.9985, L506.0250, L503.0105 #### [facility] Laboratory [address] [place], [address] IG% 0.600 Normal 0.0-0.[address] [facility] Comment on above: Result Comment: IG% - Immature Granulocytes (promyelocytes, myelocytes and metamyelocytes) > 1% indicates that a LEFT SHIFT is Present. Performed By: #### L 506.1000, L500.4050, L500.4100, L100.0100, L501.9985, L506.0250, L503.0105 #### [facility] Laboratory [address] [place], [address] Lymphocytes/100 WBC (Bld) 24.2 % Normal 19-[address] [facility] Comment on above: Performed By: #### L 506.1000, L500.4050, L500.4100, L100.0100, L501.9985, L506.0250, L503.0105 #### [facility] Laboratory [address] [place], [address] MCH (RBC) [Entitic mass] 28.4 pg Normal 27.0-32.[address] [facility] Comment on above: Performed By: #### L 506.1000, L500.4050, L500.4100, L100.0100, L501.9985, L506.0250, L503.0105 #### [facility] Laboratory [address] [place], [address] MCHC (RBC) [Mass/Vol] 32.7 g/dL Normal 32-36 [facility] Comment on above: Performed By: #### L 506.1000, L500.4050, L500.4100, L100.0100, L501.9985, L506.0250, L503.0105 #### [facility] Laboratory [address] [place], [address] MCV (RBC) [Entitic vol] 86.8 fL Normal 80-94 [facility] Comment on above: Performed By: #### L 506.1000, L500.4050, L500.4100, L100.0100, L501.9985, L506.0250, L503.0105 #### [facility] Laboratory [address] [place], [address] Monocytes/100 WBC (Bld) 8.4 % Normal 0-10 [facility] Comment on above: Performed By: #### L 506.1000, L500.4050, L500.4100, L100.0100, L501.9985, L506.0250, L503.0105 #### [facility] Laboratory [address] [place], [address] Neutrophils/100 WBC (Bld) 63.8 % Normal 47-[address] [facility] Comment on above: Performed By: #### L 506.1000, L500.4050, L500.4100, L100.0100, L501.9985, L506.0250, L503.0105 #### [facility] Laboratory [address] [place], [address] Nucleated RBC (Bld) [#/Vol] 0 10*3/uL Normal 0-[address] [facility] Comment on above: Performed By: #### L 506.1000, L500.4050, L500.4100, L100.0100, L501.9985, L506.0250, L503.0105 #### [facility] Laboratory [address] [place], [address] Platelet mean volume (Bld) [Entitic vol] 10.9 fL Normal 6.2-12.[address] [facility] Comment on above: Performed By: #### L 506.1000, L500.4050, L500.4100, L100.0100, L501.9985, L506.0250, L503.0105 #### [facility] Laboratory [address] [place], [address] Platelets (Bld) [#/Vol] 325 10*3/uL Normal 150-[address] [facility] Comment on above: Performed By: #### L 506.1000, L500.4050, L500.4100, L100.0100, L501.9985, L506.0250, L503.0105 #### [facility] Laboratory [address] [place], [address] RBC (Bld) [#/Vol] 5.17 10*6/uL Normal 4.6-6.2 [facility] Comment on above: Performed By: #### L 506.1000, L500.4050, L500.4100, L100.0100, L501.9985, L506.0250, L503.0105 #### [facility] Laboratory [address] [place], [address] RDW SD 42.2 fl Normal 35.1-43.[address] [facility] Comment on above: Performed By: #### L 506.1000, L500.4050, L500.4100, L100.0100, L501.9985, L506.0250, L503.0105 #### [facility] Laboratory [address] [place], [address] WBC (Bld) [#/Vol] 6.9 10*3/uL Normal 4.4-11.0 [facility] Comment on above: Performed By: #### L 506.1000, L500.4050, L500.4100, L100.0100, L501.9985, L506.0250, L503.0105 #### [facility] Laboratory [address] [place], [address] Carbon dioxide measurementOr dered By: Zuleyma Horner on 04-11-2024 CO2 [Moles/Vol] 29.0 mmol/L 21.0-32.[address] [facility] Chloride measurementOrdered By: Zuleyma Horner on 04-11-2024 Chloride [Moles/Vol] 98 mmol/L 98-107 [facility] Comprehensive Metabolic Prof ilon 04-11-2024 Albumin [Mass/Vol] 3.9 g/dL Normal 3.2-5.0 [facility] Comment on above: Performed By: #### L 506.1000, L500.4050, L500.4100, L100.0100, L501.9985, L506.0250, L503.0105 #### [facility] Laboratory [address] [place], [address] Albumin/Globulin [Mass ratio] 1.1 {ratio} Normal 0.9-2.[address] [facility] Comment on above: Performed By: #### L 506.1000, L500.4050, L500.4100, L100.0100, L501.9985, L506.0250, L503.0105 #### [facility] Laboratory [address] [place], [address] ALK P 62 U/L Normal 45-[address] [facility] Comment on above: Performed By: #### L 506.1000, L500.4050, L500.4100, L100.0100, L501.9985, L506.0250, L503.0105 #### [facility] Laboratory [address] [place], [address] ALT [Catalytic activity/Vol] 30 U/L Normal 16-[address] [facility] Comment on above: Performed By: #### L 506.1000, L500.4050, L500.4100, L100.0100, L501.9985, L506.0250, L503.0105 #### [facility] Laboratory [address] [place], [address] AST [Catalytic activity/Vol] 20 U/L Normal 15-[address] [facility] Comment on above: Performed By: #### L 506.1000, L500.4050, L500.4100, L100.0100, L501.9985, L506.0250, L503.0105 #### [facility] Laboratory [address] [place], [address] Bilirubin [Mass/Vol] 0.60 mg/dL Normal 0.20-1.00 [facility] Comment on above: Result Comment: For patients on eltrombopag therapy, use of Dimension [place] TBIL is not recommended. Performed By: #### L 506.1000, L500.4050, L500.4100, L100.0100, L501.9985, L506.0250, L503.0105 #### [facility] Laboratory [address] [place], [address] BUN/CRE 13.0 RATIO Normal 10-[address] [facility] Comment on above: Performed By: #### L 506.1000, L500.4050, L500.4100, L100.0100, L501.9985, L506.0250, L503.0105 #### [facility] Laboratory [address] [place], [address] CA,Total 10.5 mg/dL High 8.5-10.[address] [facility] Comment on above: Performed By: #### L 506.1000, L500.4050, L500.4100, L100.0100, L501.9985, L506.0250, L503.0105 #### [facility] Laboratory [address] [place], [place], [phone] Chloride [Moles/Vol] 98 mmol/L Normal 98-107 [facility] Comment on above: Performed By: #### L 506.1000, L500.4050, L500.4100, L100.0100, L501.9985, L506.0250, L503.0105 #### [facility] Laboratory [address] [place], [place], [phone] CO2 [Moles/Vol] 29.0 mmol/L Normal 21.0-32.[address] [facility] Comment on above: Performed By: #### L 506.1000, L500.4050, L500.4100, L100.0100, L501.9985, L506.0250, L503.0105 #### [facility] Laboratory [address] [place], [address] Creatinine [Mass/Vol] 1.00 mg/dL Normal 0.70-1.30 [facility] Comment on above: Result Comment: The validity of the calculated GFR GFRAA in patients over 70 years has not been determined. Clinical correlation is essential. Performed By: #### L 506.1000, L500.4050, L500.4100, L100.0100, L501.9985, L506.0250, L503.0105 #### [facility] Laboratory [address] [place], [place], [phone] ([phone] EST GFR - AA 95 mL/min Normal >[address] [facility] Comment on above: Result Comment: Afri can [place] GFR Calc Performed By: #### L 506.1000, L500.4050, L500.4100, L100.0100, L501.9985, L506.0250, L503.0105 #### [facility] Laboratory [address] [place], [place], [phone] ([phone]) GAP 8 Normal 5-[address] [facility] Comment on above: Performed By: #### L 506.1000, L500.4050, L500.4100, L100.0100, L501.9985, L506.0250, L503.0105 #### [facility] Laboratory [address] [place], [address] GFR/1.73 sq M.predicted among non-blacks MDRD (S/P/Bld) [Vol rate/Area] 79 mL/min/{1.73_m2} Normal >[address] [facility] Comment on above: Result Comment: Non- GFR Calc Performed By: #### L 506.1000, L500.4050, L500.4100, L100.0100, L501.9985, L506.0250, L503.0105 #### [facility] Laboratory [address] [place], [place], [phone] ([phone]) Globulin (S) [Mass/Vol] 3.6 g/dL Normal 2.2-4.2 [facility] Comment on above: Performed By: #### L 506.1000, L500.4050, L500.4100, L100.0100, L501.9985, L506.0250, L503.0105 #### [facility] Laboratory [address] [place], [address] Glucose [Mass/Vol] 406 mg/dL High 74-106 [facility] Comment on above: Result Comment: Gluc ose result greater than or equal to 200 mg/dL suggests DIABETES MELLITUS per A.D.A. criteria. Performed By: #### L 506.1000, L500.4050, L500.4100, L100.0100, L501.9985, L506.0250, L503.0105 #### [facility] Laboratory [address] [place], [address] Potassium [Moles/Vol] 4.9 mmol/L Normal 3.5-5.1 [facility] Comment on above: Performed By: #### L 506.1000, L500.4050, L500.4100, L100.0100, L501.9985, L506.0250, L503.0105 #### [facility] Laboratory [address] [place], [address] Sodium [Moles/Vol] 135 mmol/L Low 136-145 [facility] Comment on above: Performed By: #### L 506.1000, L500.4050, L500.4100, L100.0100, L501.9985, L506.0250, L503.0105 #### [facility] [address] [place], [address] T PROT 7.5 g/dL Normal 6.4-8.[address] [facility] Comment on above: Performed By: #### L 506.1000, L500.4050, L500.4100, L100.0100, L501.9985, L506.0250, L503.0105 #### [facility] [address] [place], [address] Urea nitrogen [Mass/Vol] 13 mg/dL Normal 7-[address] [facility] Comment on above: Performed By: #### L 506.1000, L500.4050, L500.4100, L100.0100, L501.9985, L506.0250, L503.0105 #### [facility] [address] [place], [address] Eosinophil percentageOrdered By: Zuleyma Horner on 04-11-2024 Eosinophils/100 WBC (Bld) 1.6 % 0-[address] [facility] Erythrocyte distribution wid th (RBC) [Ratio]Ordered By: Zuleyma Horner on 04-11-2024 Erythrocyte distribution width (RBC) [Entitic vol] 42.2 fL 35.1-43.[address] [facility] Erythrocyte distribution wid th ratioOrdered By: Zuleyma Horner on 04-11-2024 Erythrocyte distribution width (RBC) [Ratio] 13.3 % 11.6-14.[address] [facility] Estimated glomerular filtrat ion rate (GFR) AmericanOrdered By: Zuleyma Horner on 04-11-2024 Estimated GFR (MDRD) Amer 95 mL/min >[address] [facility] Comment on above: GFR Calc Folates, (Folic Acid)on 03-26 FOLATES 11.50 ng/mL Normal 3.1-55.[address] [facility] Comment on above: Order Comment: N Performed By: #### L 506.1000, L500.4050, L500.4100, L100.0100, L501.9985, L506.0250, L503.0105 #### [facility] Laboratory [address] [place] [address]. [place], [place], [id number] Folic acid measurementOrdere d By: Zuleyma Horner on 04-11-2024 Folate 11.50 ng/mL 3.1-55.[address] [facility] Glomerular filtration rate ( GFR) estimationOrdered By: Zuleyma Horner on 04-11-2024 Estimated GFR (MDRD) Non-Af Amer 79 mL/min >[address] [facility] Comment on above: Non- GFR Calc Glucose measurementOrdered B y: Zuleyma Horner on 04-11-2024 Glucose [Mass/Vol] 406 mg/dL High 74-106 [facility] Comment on above: Glucose result great er than or equal to 200 mg/dLsuggests DIABETES MELLITUS per A.D.A. criteria. Hematocrit Auto (Bld) [Volum e fraction]Ordered By: Zuleyma Horner on 04-11-2024 Hematocrit (Bld) [Volume fraction] 44.9 % 40-[address] [facility] Hemoglobin A1con 04-11-2024 HbA1c (Bld) [Mass fraction] 12.0 % High 3.8-5.[address] [facility] Comment on above: Result Comment: Norm al < 5.7 % Prediabetic 5.7 - 6.4 % Diabetic >or= 6.5 % Please note range changes. Performed By: #### L 506.1000, L500.4050, L500.4100, L100.0100, L501.9985, L506.0250, L503.0105 #### [facility] Laboratory [address] [place], [address] Hemoglobin A1c percentageOrd ered By: Zuleyma Horner on 04-11-2024 HbA1c (Bld) [Mass fraction] 12.0 % High 3.8-5.[address] [facility] Comment on above: Normal < 5.7 % Predi abetic 5.7 - 6.4 % Diabetic >or= 6.5 % Please note range changes. Hemoglobin measurementOrdere d By: Zuleyma Horner on 04-11-2024 Hemoglobin (Bld) [Mass/Vol] 14.7 g/dL 13.0-16.[address] [facility] High density lipoprotein (HD L) measurementOrdered By: Zuleyma Horner on 04-11-2024 Cholesterol in HDL [Mass/Vol] 40 mg/dL >[address] [facility] Comment on above: The drugs N-Acetylcy steine and Metamizole may falsely depress this assay. Reference Range HDL <40 mg/dL Low HDL Cholesterol HDL >or= 60 mg/dL High HDL Cholesterol Immature granulocytes/100 WB C Auto (Bld)Ordered By: Zuleyma Horner on 04-11-2024 Immature granulocytes/100 WBC (Bld) 0.600 % 0.0-0.[address] [facility] Comment on above: IG% - Immature Granu locytes (promyelocytes, myelocytes and metamyelocytes) > 1% indicates that a LEFT SHIFT is Present. Laboratory - Chemistry and C hemistry - challengeOrdered By: Zuleyma Horner on 04-11-2024 AST [Catalytic activity/Vol] 20 U/L 15-[address] [facility] Lipid Profileon 04-11-2024 Cholesterol [Mass/Vol] 236 mg/dL High 200 [facility] Comment on above: Result Comment: <200 mg/dL Desirable 200-240 mg/dL Borderline >240 mg/dL High Risk Performed By: #### L 506.1000, L500.4050, L500.4100, L100.0100, L501.9985, L506.0250, L503.0105 #### [facility] Laboratory [address] [place], [address] Cholesterol in HDL [Mass/Vol] 40 mg/dL Normal [facility] Comment on above: Result Comment: The drugs N-Acetylcysteine and Metamizole may falsely depress this assay. Reference Range HDL <40 mg/dL Low HDL Cholesterol HDL >or= 60 mg/dL High HDL Cholesterol Performed By: #### L 506.1000, L500.4050, L500.4100, L100.0100, L501.9985, L506.0250, L503.0105 #### [facility] [address] [place], [address] Cholesterol in LDL [Mass/Vol] 125 mg/dL Normal 0-[address] [facility] Comment on above: Performed By: #### L 506.1000, L500.4050, L500.4100, L100.0100, L501.9985, L506.0250, L503.0105 #### [facility] [address] [place], [address] Cholesterol in VLDL [Mass/Vol] 71 mg/dL High 5-[address] [facility] Comment on above: Performed By: #### L 506.1000, L500.4050, L500.4100, L100.0100, L501.9985, L506.0250, L503.0105 #### [facility] [address] [place], [address] Triglyceride [Mass/Vol] 356 mg/dL High [facility] Comment on above: Result Comment: The drugs N-Acetylcysteine and Metamizole may falsely depress this assay. Serum Triglycerides Reference Interval Normal <150 mg/dL Borderline high 150 - 199 mg/dL High 200 - 499 mg/dL Very High > or = 500 mg/dL Performed By: #### L 506.1000, L500.4050, L500.4100, L100.0100, L501.9985, L506.0250, L503.0105 #### [facility] [place], [address] Low density lipoprotein (LDL ) cholesterol measurementOrdered By: Zuleyma Horner on 04-11-2024 Cholesterol in LDL [Mass/Vol] 125 mg/dL 0-[address] [facility] Lymphocytes Auto (Unsp spec) [#/Vol]Ordered By: Zuleyma Horner on 04-11-2024 Lymphocytes (Bld) [#/Vol] 1.67 10*3/uL 0.83-4.[address] [facility] Lymphocytes/100 WBC Auto (Un sp spec)Ordered By: Zuleyma Horner on 04-11-2024 Lymphocytes/100 WBC (Bld) 24.2 % 19-[address] [facility] MCV (mean corpuscular volume ) determinationOrdered By: Zuleyma Horner on 04-11-2024 MCV (RBC) [Entitic vol] 86.8 fL 80-94 [facility] Mean corpuscular hemoglobin (MCH) determinationOrdered By: Zuleyma Horner on 04-11-2024 MCH (RBC) [Entitic mass] 28.4 pg 27.0-32.[address] [facility] Mean corpuscular hemoglobin concentration (MCHC) determinationOrdered By: Zuleyma Horner on 04-11-2024 MCHC (RBC) [Mass/Vol] 32.7 g/dL 32-36 [facility] Mean platelet volume determi nationOrdered By: Zuleyma Horner on 04-11-2024 Platelet mean volume (Bld) [Entitic vol] 10.9 fL 6.2-12.[address] [facility] Monocyte percentageOrdered B y: Zuleyma Horner on 04-11-2024 Monocytes/100 WBC (Bld) 8.4 % 0-10 [facility] Neutrophil percentageOrdered By: Zuleyma Horner on 04-11-2024 Neutrophils/100 WBC (Bld) 63.8 % 47-[address] [facility] Nucleated red blood cell per centageOrdered By: Zuleyma Horner on 04-11-2024 Nucleated RBC/100 WBC (Bld) [Ratio] 0 % 0-[address] [facility] Platelet countOrdered By: Tommy Horner on 04-11-2024 Platelets (Bld) [#/Vol] 325 10*3/uL 150-[address] [facility] Potassium measurementOrdered By: Zuleyma Horner on 04-11-2024 Potassium [Moles/Vol] 4.9 mmol/L 3.5-5.1 [facility] RBC Auto (Bld) [#/Vol]Ordere d By: Zuleyma Horner on 04-11-2024 RBC (Bld) [#/Vol] 5.17 10*6/uL 4.6-6.2 [facility] Serum anion gap measurementO rdered By: Zuleyma Horner on 04-11-2024 Anion gap [Moles/Vol] 8 mmol/L 5-15 [facility] Serum globulin measurementOr dered By: Zuleyma Horner on 04-11-2024 Globulin (S) [Mass/Vol] 3.6 g/dL 2.2-4.2 [facility] Serum or plasma alanine francis otransferase (ALT) measurementOrdered By: Zuleyma Horner on 04-11-2024 ALT [Catalytic activity/Vol] 30 U/L 16-[address] [facility] Serum or plasma albumin sai urement (mass/volume)Ordered By: Zuleyma Horner on 04-11-2024 Albumin [Mass/Vol] 3.9 g/dL 3.2-5.0 [facility] Serum or plasma alkaline ed sphatase measurementOrdered By: Zuleyma Horner on 04-11-2024 ALP [Catalytic activity/Vol] 62 U/L 45-[address] [facility] Serum or plasma calcium sai urement (mass/volume)Ordered By: Zuleyma Horner on 04-11-2024 Calcium [Mass/Vol] 10.5 mg/dL High 8.5-10.1 [facility] Serum or plasma cholesterol measurement (mass/volume)Ordered By: Zuleyma Horner on 04-11-2024 Cholesterol [Mass/Vol] 236 mg/dL High <200 [facility] Comment on above: <200 mg/dL Desirable 200-240 mg/dL Borderline >240 mg/dL High Risk Serum or plasma creatinine m easurement (mass/volume)Ordered By: Zuleyma Horner on 04-11-2024 Creatinine [Mass/Vol] 1.00 mg/dL 0.70-1.30 [facility] Comment on above: The validity of the calculated GFR & GFRAA in patients over 70 years has not been determined. Clinical correlation is essential. Serum or plasma urea nitroge n measurement (mass/volume)Ordered By: Zuleyma Horner on 04-11-2024 Urea nitrogen [Mass/Vol] 13 mg/dL 7-[address] [facility] Sodium levelOrdered By: Froylan Horner on 04-11-2024 Sodium [Moles/Vol] 135 mmol/L Low 136-145 [facility] Total proteinOrdered By: Margaret Horner on 04-11-2024 Protein [Mass/Vol] 7.5 g/dL 6.4-8.2 [facility] Triglycerides measurementOrd ered By: Zuleyma Horner on 04-11-2024 Triglyceride [Mass/Vol] 356 mg/dL High <199 [facility] Comment on above: The drugs N-Acetylcy steine and Metamizole may falsely depress this assay.Serum Triglycerides Reference Interval Normal <150 mg/dL Borderline high 150 - 199 mg/dL High 200 - 499 mg/dL Very High > or = 500 mg/dL Very low density lipoprotein (VLDL) cholesterol measurementOrdered By: Zuleyma Horner on 04-11-2024 VLDL Cholesterol 71 mg/dL High 5-[address] [facility] Vitamin B12 measurementOrder ed By: Zuleyma Horner on 04-11-2024 Cobalamin (Vitamin B12) [Mass/Vol] 458 pg/mL 211-[address] [facility] White blood cell (WBC) count Ordered By: Zuleyma Horner on 04-11-2024 WBC (Bld) [#/Vol] 6.9 10*3/uL 4.4-11.0 [facility] ANDRESSA w/ Reflex Mult Confirmon 01-27-2024 ANDRESSA,DIRECT Negative Normal Negative [facility] Comment on above: Result Comment: Perf ormed at: - [facility] [address] [id number] Transfusion Nurse: Rory Mejias PhD, Phone: [phone] Performed By: #### L 506.1000, L500.4050, L500.4100, L100.0100, L501.9985, L506.0250, L503.0105 #### [facility] [address] [place], [place], [id number] CRP, High Sensitivity [id number] on 01-27-2024 CRP, HIGH SENS 0.64 mg/L Normal 0.00-3.[address] [facility] Comment on above: Result Comment: Rela tive Risk for Future Cardiovascular Event Low <1.00 Average 1.00 - 3.00 High >3.00 Performed By: #### L 506.1000, L500.4050, L500.4100, L100.0100, L501.9985, L506.0250, L503.0105 #### [facility] [address] [place], [address] Lipoprotein Aon 01-27-2024 Lipoprotein a [Moles/Vol] 16.1 nmol/L Normal <75.[address] [facility] Comment on above: Result Comment: Note : Values greater than or equal to 75.0 nmol/L may indicate an independent risk factor for CHD, but must be evaluated with caution when applied to non- populations due to the influence of genetic factors on Lp(a) across ethnicities. Performed at: [address] [id number] Transfusion Nurse: Rory Mejias PhD, Phone: [phone] Performed By: #### L 506.1000, L500.4050, L500.4100, L100.0100, L501.9985, L506.0250, L503.0105 #### [facility] [address] [place], [address] CBC W/Diff, Automatedon Absolute Lymph 1.72 X10 3/uL Normal 0.83-4.[address] [facility] Comment on above: Performed By: #### L 506.1000, L500.4050, L500.4100, L100.0100, L501.9985, L506.0250, L503.0105 #### [facility] [address] [place], [address] Absolute Neut 4.9 X10 3/uL Normal 2.0-7.[address] [facility] Comment on above: Performed By: #### L 506.1000, L500.4050, L500.4100, L100.0100, L501.9985, L506.0250, L503.0105 #### [facility] [address] [place], [address] Basophils/100 WBC (Bld) 1.3 % High 0-1 [facility] Comment on above: Performed By: #### L 506.1000, L500.4050, L500.4100, L100.0100, L501.9985, L506.0250, L503.0105 #### [facility] [address] [place], [address] Eosinophils/100 WBC (Bld) 1.5 % Normal 0-[address] [facility] Comment on above: Performed By: #### L 506.1000, L500.4050, L500.4100, L100.0100, L501.9985, L506.0250, L503.0105 #### [facility] [address] [place], [address] Erythrocyte distribution width (RBC) [Ratio] 13.2 % Normal 11.6-14.[address] [facility] Comment on above: Performed By: #### L 506.1000, L500.4050, L500.4100, L100.0100, L501.9985, L506.0250, L503.0105 #### [facility] [address] [place], [address] Hematocrit (Bld) [Volume fraction] 41.6 % Normal 40-[address] [facility] Comment on above: Performed By: #### L 506.1000, L500.4050, L500.4100, L100.0100, L501.9985, L506.0250, L503.0105 #### [facility] [address] [place], [address] Hemoglobin (Bld) [Mass/Vol] 13.6 g/dL Normal 13.0-16.[address] [facility] Comment on above: Performed By: #### L 506.1000, L500.4050, L500.4100, L100.0100, L501.9985, L506.0250, L503.0105 #### [facility] [address] [place], [address] IG% 0.500 Normal 0.0-0.[address] [facility] Comment on above: Result Comment: IG% - Immature Granulocytes (promyelocytes, myelocytes and metamyelocytes) > 1% indicates that a LEFT SHIFT is Present. Performed By: #### L 506.1000, L500.4050, L500.4100, L100.0100, L501.9985, L506.0250, L503.0105 #### [facility] [address] [place], [address] Lymphocytes/100 WBC (Bld) 22.8 % Normal 19-[address] [facility] Comment on above: Performed By: #### L 506.1000, L500.4050, L500.4100, L100.0100, L501.9985, L506.0250, L503.0105 #### [facility] [address] [place], [address] MCH (RBC) [Entitic mass] 28.6 pg Normal 27.0-32.[address] [facility] Comment on above: Performed By: #### L 506.1000, L500.4050, L500.4100, L100.0100, L501.9985, L506.0250, L503.0105 #### [facility] [address] [place], [address] MCHC (RBC) [Mass/Vol] 32.7 g/dL Normal 32-36 [facility] Comment on above: Performed By: #### L 506.1000, L500.4050, L500.4100, L100.0100, L501.9985, L506.0250, L503.0105 #### [facility] [address] [place], [address] MCV (RBC) [Entitic vol] 87.4 fL Normal 80-94 [facility] Comment on above: Performed By: #### L 506.1000, L500.4050, L500.4100, L100.0100, L501.9985, L506.0250, L503.0105 #### [facility] [address] [place], [address] Monocytes/100 WBC (Bld) 9.2 % Normal 0-10 [facility] Comment on above: Performed By: #### L 506.1000, L500.4050, L500.4100, L100.0100, L501.9985, L506.0250, L503.0105 #### [facility] [address] [place], [address] Neutrophils/100 WBC (Bld) 64.7 % Normal 47-[address] [facility] Comment on above: Performed By: #### L 506.1000, L500.4050, L500.4100, L100.0100, L501.9985, L506.0250, L503.0105 #### [facility] [address] [place], [address] Nucleated RBC (Bld) [#/Vol] 0 10*3/uL Normal 0-[address] [facility] Comment on above: Performed By: #### L 506.1000, L500.4050, L500.4100, L100.0100, L501.9985, L506.0250, L503.0105 #### [facility] [address] [place], [address] Platelet mean volume (Bld) [Entitic vol] 11.7 fL Normal 6.2-12.[address] [facility] Comment on above: Performed By: #### L 506.1000, L500.4050, L500.4100, L100.0100, L501.9985, L506.0250, L503.0105 #### [facility] [address] [place], [address] Platelets (Bld) [#/Vol] 281 10*3/uL Normal 150-[address] [facility] Comment on above: Performed By: #### L 506.1000, L500.4050, L500.4100, L100.0100, L501.9985, L506.0250, L503.0105 #### [facility] [address] [place], [address] RBC (Bld) [#/Vol] 4.76 10*6/uL Normal 4.6-6.2 [facility] Comment on above: Performed By: #### L 506.1000, L500.4050, L500.4100, L100.0100, L501.9985, L506.0250, L503.0105 #### [facility] [address] [place], [address] RDW SD 42.3 fl Normal 35.1-43.[address] [facility] Comment on above: Performed By: #### L 506.1000, L500.4050, L500.4100, L100.0100, L501.9985, L506.0250, L503.0105 #### [facility] [address] [place], [address] WBC (Bld) [#/Vol] 7.5 10*3/uL Normal 4.4-11.0 [facility] Comment on above: Performed By: #### L 506.1000, L500.4050, L500.4100, L100.0100, L501.9985, L506.0250, L503.0105 #### [facility] [address] [place], [address] CRPon 01-26-2024 C-REACTIVE PROT < 2.90 Normal 0.0-3.[address] [facility] Comment on above: Order Comment: N Result Comment: C-Re active Protein (CRP) provides useful information for the diagnosis, therapy and monitoring of inflammatory processes and associated diseases. For the evaluation of Relative Risk for Cardiovascular Disease, a High Sensitivity CRP (HSCRP) should be ordered. Performed By: #### L 506.1000, L500.4050, L500.4100, L100.0100, L501.9985, L506.0250, L503.0105 #### [facility] [address] [place], [address] Comprehensive Metabolic Prof ilon 01-26-2024 Albumin [Mass/Vol] 4.1 g/dL Normal 3.2-5.0 [facility] Comment on above: Order Comment: N Performed By: #### L 506.1000, L500.4050, L500.4100, L100.0100, L501.9985, L506.0250, L503.0105 #### [facility] [address] [place], [address] Albumin/Globulin [Mass ratio] 1.4 {ratio} Normal 0.9-2.[address] [facility] Comment on above: Order Comment: N Performed By: #### L 506.1000, L500.4050, L500.4100, L100.0100, L501.9985, L506.0250, L503.0105 #### [facility] [address] [place], [address] ALK P 67 U/L Normal 45-[address] [facility] Comment on above: Order Comment: N Performed By: #### L 506.1000, L500.4050, L500.4100, L100.0100, L501.9985, L506.0250, L503.0105 #### [facility] [address] [place] [place], [address] ALT [Catalytic activity/Vol] 28 U/L Normal 16-[address] [facility] Comment on above: Order Comment: N Performed By: #### L 506.1000, L500.4050, L500.4100, L100.0100, L501.9985, L506.0250, L503.0105 #### [facility] [address] [place], [address] AST [Catalytic activity/Vol] 12 U/L Low 15-[address] [facility] Comment on above: Order Comment: N Performed By: #### L 506.1000, L500.4050, L500.4100, L100.0100, L501.9985, L506.0250, L503.0105 #### [facility] [address] [place] [place], [address] Bilirubin [Mass/Vol] 0.60 mg/dL Normal 0.20-1.00 [facility] Comment on above: Order Comment: N Result Comment: For patients on eltrombopag therapy, use of Dimension [place] TBIL is not recommended. Performed By: #### L 506.1000, L500.4050, L500.4100, L100.0100, L501.9985, L506.0250, L503.0105 #### [facility] [address] [place], [address] BUN/CRE 22.3 RATIO High 10-[address] [facility] Comment on above: Order Comment: N Performed By: #### L 506.1000, L500.4050, L500.4100, L100.0100, L501.9985, L506.0250, L503.0105 #### [facility] [address] [place], [address] CA,Total 9.6 mg/dL Normal 8.5-10.[address] [facility] Comment on above: Order Comment: N Performed By: #### L 506.1000, L500.4050, L500.4100, L100.0100, L501.9985, L506.0250, L503.0105 #### [facility] [address] [place], [address] Chloride [Moles/Vol] 101 mmol/L Normal 98-107 [facility] Comment on above: Order Comment: N Performed By: #### L 506.1000, L500.4050, L500.4100, L100.0100, L501.9985, L506.0250, L503.0105 #### [facility] [address] [place], [address] CO2 [Moles/Vol] 28.0 mmol/L Normal 21.0-32.[address] [facility] Comment on above: Order Comment: N Performed By: #### L 506.1000, L500.4050, L500.4100, L100.0100, L501.9985, L506.0250, L503.0105 #### [facility] [address] [place], [address] Creatinine [Mass/Vol] 0.81 mg/dL Normal 0.70-1.30 [facility] Comment on above: Order Comment: N Result Comment: The validity of the calculated GFR GFRAA in patients over 70 years has not been determined. Clinical correlation is essential. Performed By: #### L 506.1000, L500.4050, L500.4100, L100.0100, L501.9985, L506.0250, L503.0105 #### [facility] [address] [place], [address] EST GFR - AA 122 mL/min Normal >[address] [facility] Comment on above: Order Comment: N Result Comment: Afri can [place] GFR Calc Performed By: #### L 506.1000, L500.4050, L500.4100, L100.0100, L501.9985, L506.0250, L503.0105 #### [facility] [address] [place], [address] GAP 6 Normal 5-[address] [facility] Comment on above: Order Comment: N Performed By: #### L 506.1000, L500.4050, L500.4100, L100.0100, L501.9985, L506.0250, L503.0105 #### [facility] [address] [place], [address] GFR/1.73 sq M.predicted among non-blacks MDRD (S/P/Bld) [Vol rate/Area] 101 mL/min/{1.73_m2} Normal >[address] [facility] Comment on above: Order Comment: N Result Comment: Non- GFR Calc Performed By: #### L 506.1000, L500.4050, L500.4100, L100.0100, L501.9985, L506.0250, L503.0105 #### [facility] [address] [place], [address] Globulin (S) [Mass/Vol] 3.0 g/dL Normal 2.2-4.2 [facility] Comment on above: Order Comment: N Performed By: #### L 506.1000, L500.4050, L500.4100, L100.0100, L501.9985, L506.0250, L503.0105 #### [facility] [address] [place], [address] Glucose [Mass/Vol] 354 mg/dL High 74-106 [facility] Comment on above: Order Comment: N Result Comment: Gluc ose result greater than or equal to 200 mg/dL suggests DIABETES MELLITUS per A.D.A. criteria. Performed By: #### L 506.1000, L500.4050, L500.4100, L100.0100, L501.9985, L506.0250, L503.0105 #### [facility] [address] [place], [address] Potassium [Moles/Vol] 4.6 mmol/L Normal 3.5-5.1 [facility] Comment on above: Order Comment: N Performed By: #### L 506.1000, L500.4050, L500.4100, L100.0100, L501.9985, L506.0250, L503.0105 #### [facility] [address] [place], [address] Sodium [Moles/Vol] 136 mmol/L Normal 136-145 [facility] Comment on above: Order Comment: N Performed By: #### L 506.1000, L500.4050, L500.4100, L100.0100, L501.9985, L506.0250, L503.0105 #### [facility] [address] [place], [address] T PROT 7.1 g/dL Normal 6.4-8.[address] [facility] Comment on above: Order Comment: N Performed By: #### L 506.1000, L500.4050, L500.4100, L100.0100, L501.9985, L506.0250, L503.0105 #### [facility] [address] [place], [address] Urea nitrogen [Mass/Vol] 18 mg/dL Normal 7-[address] [facility] Comment on above: Order Comment: N Performed By: #### L 506.1000, L500.4050, L500.4100, L100.0100, L501.9985, L506.0250, L503.0105 #### [facility] [address] [place], [place], [address] Erythrocyte Sed Rateon 01-25 SED RATE 10 mm/hr Normal 0-[address] [facility] Comment on above: Performed By: #### L 506.1000, L500.4050, L500.4100, L100.0100, L501.9985, L506.0250, L503.0105 #### [facility] [address] [place], [place], [address] Folates, (Folic Acid)on FOLATES 12.90 ng/mL Normal 3.1-55.[address] [facility] Comment on above: Order Comment: N Performed By: #### L 506.1000, L500.4050, L500.4100, L100.0100, L501.9985, L506.0250, L503.0105 #### [facility] [address] [place], [place], [address] Hemoglobin A1con 01-26-2024 HbA1c (Bld) [Mass fraction] 13.0 % High 3.8-5.[address] [facility] Comment on above: Result Comment: Norm al < 5.7 % Prediabetic 5.7 - 6.4 % Diabetic >or= 6.5 % Please note range changes. Performed By: #### L 506.1000, L500.4050, L500.4100, L100.0100, L501.9985, L506.0250, L503.0105 #### [facility] [address] [place], [place], [id number] Lipid Profileon 01-26-2024 Cholesterol [Mass/Vol] 112 mg/dL Normal 200 [facility] Comment on above: Order Comment: N Result Comment: <200 mg/dL Desirable 200-240 mg/dL Borderline >240 mg/dL High Risk Performed By: #### L 506.1000, L500.4050, L500.4100, L100.0100, L501.9985, L506.0250, L503.0105 #### [facility] [address] [place], [address] Cholesterol in HDL [Mass/Vol] 31 mg/dL Low [facility] Comment on above: Order Comment: N Result Comment: The drugs N-Acetylcysteine and Metamizole may falsely depress this assay. Reference Range HDL <40 mg/dL Low HDL Cholesterol HDL >or= 60 mg/dL High HDL Cholesterol Performed By: #### L 506.1000, L500.4050, L500.4100, L100.0100, L501.9985, L506.0250, L503.0105 #### [facility] [address] [place], [address] Cholesterol in LDL [Mass/Vol] 23 mg/dL Normal 0-[address] [facility] Comment on above: Order Comment: N Performed By: #### L 506.1000, L500.4050, L500.4100, L100.0100, L501.9985, L506.0250, L503.0105 #### [facility] [address] [place], [address] Cholesterol in VLDL [Mass/Vol] 58 mg/dL High 5-[address] [facility] Comment on above: Order Comment: N Performed By: #### L 506.1000, L500.4050, L500.4100, L100.0100, L501.9985, L506.0250, L503.0105 #### [facility] [address] [place], [address] Triglyceride [Mass/Vol] 290 mg/dL High [facility] Comment on above: Order Comment: N Result Comment: The drugs N-Acetylcysteine and Metamizole may falsely depress this assay. Serum Triglycerides Reference Interval Normal <150 mg/dL Borderline high 150 - 199 mg/dL High 200 - 499 mg/dL Very High > or = 500 mg/dL Performed By: #### L 506.1000, L500.4050, L500.4100, L100.0100, L501.9985, L506.0250, L503.0105 #### [facility] [address] [place], [address] Vitamin B12on 01-26-2024 Cobalamin (Vitamin B12) [Mass/Vol] 344 pg/mL Normal 211-[address] [facility] Comment on above: Performed By: #### L 506.1000, L500.4050, L500.4100, L100.0100, L501.9985, L506.0250, L503.0105 #### [facility] [address] [place], [address] Vitamin D,25 Hydroxyon 01-25 Vitamin D 25-OH 15.2 ng/mL Normal [facility] Comment on above: Result Comment: Edna min D 25(OH) Status Range Deficiency <20 ng/mL (50nmol/L) Insufficiency 20 - 30 ng/mL (50 - 75 nmol/L) Sufficiency 30 - 100 ng/mL (75 - 250 nmol/L) Toxicity >100 ng/mL (>250 nmol/L) Performed By: #### L 506.1000, L500.4050, L500.4100, L100.0100, L501.9985, L506.0250, L503.0105 #### [facility] [address] [place], [address] CNOVon 03-20-2019 [facility]OV [facility] LAMBERTO TEJADA ([id number]) 1955 M Date Time Provider Department 03/20/19 10:00 AM VALERY MEADE [facility] During your visit today, we recorded the following information about you: Temperature Pulse Respiration Blood pressure 99 degrees 136/minute 16/minute 138/88 Weight 85.5 kg Valery Meade APRN.[employer] 03/20/2019 10:41 AM Signed Subjective HPI Pt presents with c/o runny nose/nasal congestion and cough x 7-8 days. Yesterday developed left ear pain and feelings of movement in ear and left jaw pain. Has been using normal saline nose spray several times/day. Denies fever, chills, myalgias, chest tightness, dyspnea. Exposed to sick contacts at work. No hx asthma Did not receive?influenza vaccine this season. Review of Systems Constitutional: Negative for chills and fever. HENT: Positive for congestion and ear pain. Negative for ear discharge, sinus pain, sore throat and tinnitus. Respiratory: Positive for cough. Negative for sputum production, shortness of breath and wheezing. Cardiovascular: Negative for chest pain. Skin: Negative for rash. Neurological: Negative for headaches. Objective Physical Exam Constitutional: He is oriented to person, place, and time and well-developed, well-nourished, and in no distress. No distress. HENT: Head: Normocephalic. Right Ear: Hearing, tympanic membrane, external ear and ear canal normal. Tympanic membrane is not bulging. Left Ear: Hearing, external ear and ear canal normal. Tympanic membrane is erythematous. Tympanic membrane is not bulging. Nose: Rhinorrhea present. Mouth/Throat: Oropharynx is clear and moist. No oropharyngeal exudate. Eyes: Pupils are equal, round, and reactive to light. Conjunctivae are normal. Right eye exhibits no discharge. Left eye exhibits no discharge. Neck: Neck supple. Cardiovascular: Normal rate, regular rhythm and normal heart sounds. Exam reveals no gallop and no friction rub. No murmur heard. Pulmonary/Chest: Effort normal and breath sounds normal. No respiratory distress. He has no wheezes. He has no rales. Lymphadenopathy: He has no cervical adenopathy. Neurological: He is alert and oriented to person, place, and time. Skin: Skin is warm and dry. He is not diaphoretic. BP 138/88 Pulse (!) 136 Temp 37.2 ?C (99 ?F) (Left Tympanic) Resp 16 Wt 85.5 kg (188 lb 6.4 oz) SpO2 97% .Patient presents with: Sinusitis: with LEFT ear pain radiating to LEFT jawside swelling x 1 week History reviewed. No pertinent past medical history. History reviewed. No pertinent surgical history. ALLERGIES Patient has no known allergies. MEDICATIONS atenolol (TENORMIN) 25 mg tablet Take 1 tablet by mouth once daily. fenofibrate nanocrystallized (TRICOR) 145 mg tablet Take 1 tablet by mouth once daily. glyBURIDE (DIABETA) 5 mg tablet Take 1 tablet by mouth twice daily. lisinopril (ZESTRIL, PRINIVIL) 5 mg tablet Take 1 tablet by mouth once daily. metFORMIN (GLUCOPHAGE) 1,000 mg tablet Take 1 tablet by mouth twice daily. atorvastatin (LIPITOR) 40 mg tablet Take 40 mg by mouth once daily. aspirin (NICOLE CHEWABLE ASPIRIN) 81 mg chewable tablet Take 81 mg by mouth once daily. amoxicillin (AMOXIL) 875 mg tablet Take 1 tablet by mouth twice daily for 10 days. guaiFENesin (MUCINEX) 600 mg 12 hr tablet Take 2 tablets by mouth twice daily. benzonatate (TESSALON PERLES) 100 mg capsule Take 1 capsule by mouth three times daily as needed. History reviewed. No pertinent family history. Social History Tobacco Use - Smoking status: Never Smoker - Smokeless tobacco: Current User Types: Chew Substance Use Topics - Alcohol use: Not on file - Drug use: Not on file ASSESSMENT/PLAN: 1. Acute otitis media, left - ICD9: 382.9, ICD10: H66.92 (primary diagnosis) - Supportive care with plenty of fluids, rest, and analgesia prn. - Follow up in 3-5 days if symptoms persist or worsen. - AMOXICILLIN 875 MG TABLET 2. Cough - ICD9: 786.2, ICD10: R05 - MUCINEX 600 MG TABLET, EXTENDED RELEASE - BENZONATATE 100 MG CAPSULE The patient is instructed to return or seek emergency treatment if symptoms become worse or with any acute change in condition. The patient verbalizes understanding and is in agreement with plan of care. Valery Meade CNP Referring Provider: SELF [200] Allergies As of Date: 03/20/2019 (No Known Allergies) Date Reviewed: 03/20/2019 Reviewed by: Abbie Real Ma - Fully Assessed Reason for Visit: Sinusitis [127] Cmt: with LEFT ear pain radiating to LEFT jawside swelling x 1 week Primary Visit Diagnosis:Acute otitis media, left [H66.92] Other Visit Diagnosis:Cough [R05] Order(s):amoxicillin (AMOXIL) 875 mg tabletTake 1 tablet by mouth twice daily for 10 days.Disp: 20 tabletRfl: 0 guaiFENesin (MUCINEX) 600 mg 12 hr tabletTake 2 tablets by mouth twice daily.Disp: 30 tabletRfl: 0 benzonatate (TESSALON PERLES) 100 mg capsuleTake 1 capsule by mouth three times daily as needed.Disp: 40 capsuleRfl: 0 Prescriptions as of 03/20/2019 Sig: ATENOLOL 25 MG TABLET Take 1 tablet by mouth once d* FENOFIBRATE NANOCRYSTALLIZED * Take 1 tablet by mouth once d* GLYBURIDE 5 MG TABLET Take 1 tablet by mouth twice * LISINOPRIL 5 MG TABLET Take 1 tablet by mouth once d* METFORMIN 1,000 MG TABLET Take 1 tablet by mouth twice * ATORVASTATIN 40 MG TABLET Take 40 mg by mouth once janie* ASPIRIN 81 MG CHEWABLE TABLET Take 81 mg by mouth once janie* AMOXICILLIN 875 MG TABLET Take 1 tablet by mouth twice * MUCINEX 600 MG TABLET, EXTEND* Take 2 tablets by mouth twice* BENZONATATE 100 MG CAPSULE Take 1 capsule by mouth three* Problem List As Of Date: 03/20/2019 (None) Prescriptions ordered this encounter Disp Refills Start End AMOXICILLIN 875 MG TABLET 20 t* 0 03/20/2019 03/30/2019 Route: ORAL Sig: Take 1 tablet by mouth twice daily for 10 days. MUCINEX 600 MG TABLET, EXTENDED RELE* 30 t* 0 03/20/2019 Route: ORAL Sig: Take 2 tablets by mouth twice daily. BENZONATATE 100 MG CAPSULE 40 c* 0 03/20/2019 Route: ORAL Sig: Take 1 capsule by mouth three times daily as needed. Encounter Status:Closed by VALERY MEADE CNP on 03/20/19 Normal [facility] PROGRESSon 03-20-2019 PROGRESS HNO ID: [id number] Author: Valery Meade Service: ? Author Type: Nurse Practitioner Type: Progress Notes Filed: 03/20/2019 10:41 AM Note Text: Subjective HPI Pt presents with c/o runny nose/nasal congestion and cough x 7-8 days. Yesterday developed left ear pain and feelings of movement in ear and left jaw pain. Has been using normal saline nose spray several times/day. Denies fever, chills, myalgias, chest tightness, dyspnea. Exposed to sick contacts at work. No hx asthma Did not receive?influenza vaccine this season. Review of Systems Constitutional: Negative for chills and fever. HENT: Positive for congestion and ear pain. Negative for ear discharge, sinus pain, sore throat and tinnitus. Respiratory: Positive for cough. Negative for sputum production, shortness of breath and wheezing. Cardiovascular: Negative for chest pain. Skin: Negative for rash. Neurological: Negative for headaches. Objective Physical Exam Constitutional: He is oriented to person, place, and time and well-developed, well-nourished, and in no distress. No distress. HENT: Head: Normocephalic. Right Ear: Hearing, tympanic membrane, external ear and ear canal normal. Tympanic membrane is not bulging. Left Ear: Hearing, external ear and ear canal normal. Tympanic membrane is erythematous. Tympanic membrane is not bulging. Nose: Rhinorrhea present. Mouth/Throat: Oropharynx is clear and moist. No oropharyngeal exudate. Eyes: Pupils are equal, round, and reactive to light. Conjunctivae are normal. Right eye exhibits no discharge. Left eye exhibits no discharge. Neck: Neck supple. Cardiovascular: Normal rate, regular rhythm and normal heart sounds. Exam reveals no gallop and no friction rub. No murmur heard. Pulmonary/Chest: Effort normal and breath sounds normal. No respiratory distress. He has no wheezes. He has no rales. Lymphadenopathy: He has no cervical adenopathy. Neurological: He is alert and oriented to person, place, and time. Skin: Skin is warm and dry. He is not diaphoretic. BP 138/88 Pulse (!) 136 Temp 37.2 ?C (99 ?F) (Left Tympanic) Resp 16 Wt 85.5 kg (188 lb 6.4 oz) SpO2 97% .Patient presents with: Sinusitis: with LEFT ear pain radiating to LEFT jawside swelling x 1 week History reviewed. No pertinent past medical history. History reviewed. No pertinent surgical history. ALLERGIES Patient has no known allergies. MEDICATIONS atenolol (TENORMIN) 25 mg tablet Take 1 tablet by mouth once daily. fenofibrate nanocrystallized (TRICOR) 145 mg tablet Take 1 tablet by mouth once daily. glyBURIDE (DIABETA) 5 mg tablet Take 1 tablet by mouth twice daily. lisinopril (ZESTRIL, PRINIVIL) 5 mg tablet Take 1 tablet by mouth once daily. metFORMIN (GLUCOPHAGE) 1,000 mg tablet Take 1 tablet by mouth twice daily. atorvastatin (LIPITOR) 40 mg tablet Take 40 mg by mouth once daily. aspirin (NICOLE CHEWABLE ASPIRIN) 81 mg chewable tablet Take 81 mg by mouth once daily. amoxicillin (AMOXIL) 875 mg tablet Take 1 tablet by mouth twice daily for 10 days. guaiFENesin (MUCINEX) 600 mg 12 hr tablet Take 2 tablets by mouth twice daily. benzonatate (TESSALON PERLES) 100 mg capsule Take 1 capsule by mouth three times daily as needed. History reviewed. No pertinent family history. Social History Tobacco Use - Smoking status: Never Smoker - Smokeless tobacco: Current User Types: Chew Substance Use Topics - Alcohol use: Not on file - Drug use: Not on file ASSESSMENT/PLAN: 1. Acute otitis media, left - ICD9: 382.9, ICD10: H66.92 (primary diagnosis) - Supportive care with plenty of fluids, rest, and analgesia prn. - Follow up in 3-5 days if symptoms persist or worsen. - AMOXICILLIN 875 MG TABLET 2. Cough - ICD9: 786.2, ICD10: R05 - MUCINEX 600 MG TABLET, EXTENDED RELEASE - BENZONATATE 100 MG CAPSULE The patient is instructed to return or seek emergency treatment if symptoms become worse or with any acute change in condition. The patient verbalizes understanding and is in agreement with plan of care. Valery Meade CNP Normal [facility] Encounters Encounter Date Encounter Type Care Provider Facility Start: 02-10-2025 ambulatory [facility] Facility[facility] Start: 01-02-2025 End: 01-02-2025 ambulatory No Primary Care Physician Facility:[facility] [place] Start: 05-26-2024 End: 05-26-[address] Ti Russell MD Work Phone: [facility] Work Phone: Start: 05-26-2024 End: 05-26-[address] Erasto Carr MD -Laboratory Work Phone: Start: 05-26-2024 End: 05-26-2024 ambulatory No Primary Care Physician Facility:[facility] Start: 04-11-2024 End: 04-11-2024 Patient encounter procedure Zuleyma DUBONC -Laboratory, Specimen Work Phone: Start: 04-11-2024 End: 04-11-2024 ambulatory [facility] Facility:[facility] Start: 01-25-2024 ambulatory [facility] Facility: [facility] Procedures Date Procedure Procedure Detail Performing Clinician Start: 05-26-2024 X-ray of chest, PA a nd lateral views Dr. Ti Russell MD Work Phone: Plan of Treatment Date Care Activity Detail Author Start: 05-26-2024 Fluorescent treponem al antibody absorption test [facility] Start: 05-26-2024 Human leukocyte anti gen B27 antigen phenotyping [facility] Angiotensin converti ng enzyme [Enzymatic activity/volume] in Serum or Plasma [facility] HLA-B27 [Presence] b y CLEMENT with probe detection [facility] Immunizations Immunization Date Immunization Notes Care Provider Fa [facility] 08-07-2017 tetanus toxoid, redu lisset diphtheria toxoid, and acellular pertussis vaccine, adsorbed Dr. Ti Russell MD Work Phone: [facility] Payers Date Payer Category Payer Unknown [id number] 2024 Unknown [id number] 2024 Medicare [id number] 2024 Self-pay Unknown [id number] Unknown [id number] [id number] [id number] Unknown [id number] 2.16.8 [id number] Unknown [id number] 2.16.8 [id number] Unknown [id number] 2.16.8 [id number] Unknown [id number] [id number] [id number] Social History Date Type Detail Facility Start: 08-07-2017 Tobacco smoking stat us NHIS Never smoked tobacco (finding) [facility] Start: 05-31-2024 Sex Male (finding) [facility] Start: 1955 Sex Assigned At Male W [facility] Radiology Diagnostic study note 05-27-2024 Note Date & Type Note Facility 05-27-2024 Radiology Diagnostic study note [facility] Imaging Services [address] [place] [address] Chest PA and Lateral MR#: [id number] Acct: [id number] Name: LAMBERTO TEJADA Rep #: [id number] : 1955 M 69 From: Solo Mcqueen MD PCP: Care Physician,No Primary Status: REG CLI Study:Chest PA and Lateral Date of Exam: 05/26/24 Exam# [id number] Ordering Dr: Erasto Carr MD PROCEDURE: CHEST PA AND LATERAL 05/26/2024 REASON FOR EXAM: ACUTE UVEITIS/CORNEAL EDEMA TECHNIQUE: Frontal and lateral views of the chest. COMPARISON: None available FINDINGS: The lungs appear clear. Pulmonary vascularity appears within limits. No pleural effusion. The cardiac and mediastinal contours appear within limits. Suggestion of bilateral shoulder osteoarthrosis. RAD/Chest PA and Lateral IMPRESSION: No evidence of acute disease. Reading Location: [id number] CC: Dr. Erasto Carr MD; No Primary Care Physician ~ [employer]: Signed [facility] Evaluation note Note Date & Type Note Facility Evaluation note No assessment information availa ble [facility] Work Phone: Reason for referral (narrative) Note Date & Type Note Facility Reason for referral (narrative) No reason for referral information available [facility] Work Phone: Summary Purpose Family History No Family History Records FoundNo Family History Records Found Advance Directives No Advanced Directives Records Found Advance Directive Response Recorded Date/ Time Advance Directives Yes December 10:14am Chief Complaint and Reason for Visit Chief Complaint Admit Date M25.11 E11.9 I10 L30.9 E78.5 R53.83 F32. A G89.29 April 11, 2024 3:06pm Additional Source Comments (unrecognized sect ion and content) No Status Records FoundNo Status Records Found INFORMATION SOURCE (unrecogn ized section and content) DATE CREATED AUTHOR 03/20/2019 [facility] DATE CREATED AUTHOR AUTHOR'S ORGANIZ ATION 01/02/2025 [facility] Care Teams (unrecognized sec tion and content) Team Status: Active Member Role Status Dates Dr. Ti Russell MD Family Provider Active No Primary Care Physician Primary Care Provider Active Team Status: Inactive Member Role Status Dates Dr. Ti Russell MD Primary Care Provider Active Start: April 11, 2024 End: April 11, 2024 Zuleyma Horner PREPARED FOODS SUPERVISOR, PREPARED FOODS SUPERVISOR-C Attending Provider Active Start: April 11, 2024 End: April 11, 2024 Zuleyma Horner PREPARED FOODS SUPERVISOR, PREPARED FOODS SUPERVISOR-C Referring Provider Active Start: April 11, 2024 End: April 11, 2024 Team Status: Inactive Member Role Status Dates No Primary Care Physician Primary Care Provider Active Start: May 26, 2024 End: May 26, 2024 Dr. Erasto Carr MD Attending Provider Active Start: May 26, 2024 End: May 26, 2024 Dr. Erasto Carr MD Referring Provider Active Start: May 26, 2024 End: May 26, 2024 Goals (unrecognized section and content) Goals may be documented in a n alternate section FOR RECORDS PERTAINING TO PATIENTS WHO ARE OR HAVE BEEN ENROLLED IN A CHEMICAL DEPENDENCY/SUBSTANCEABUSE PROGRAM, SOME INFORMATION MAY BE OMITTED. This clinical summary was aggregated from multiple sources. Caution should be exercised in using it in the provision of clinical care. This summary normalizes information from multiple sources, and as a consequence, information in this document may materially change the coding, format and clinical context of patient data. In addition, data may be omitted in some cases. CLINICAL DECISIONS SHOULD BE BASED ON THE PRIMARY CLINICAL RECORDS. [facility] [employer] [facility]. provides no warranty or guarantee of the accuracy or completeness of information in this document.
[2025-02-10] MEDS: Lactated Ringers 1,000 ML 15 ML IV (06:46)
--- NOTE | 2025-02-10 06:58 | PCM.HP.STD ---
HPI - General General Date of Admission: 02/10/25 HPI Narrative The patient is a 69-year-old male who is being seen today for colonoscopy. He has never had a colonoscopy previously. He denies any GI issues or complaints. No blood in his stools. No black or tarry stools. No family history of colon polyps or colon cancers to his knowledge [facility] Medical History (Updated 02/09/25 @ 09:56 by Irene Simmons) Wears glasses Rash Arthritis Dietary restriction Non-smoker Colon cancer screening HTN (hypertension) Diabetes High cholesterol Home Medications ?Medication ?Instructions ?Recorded ?Last Taken ?Type atenolol 25 mg tablet 25 mg PO DAILY 03/25/13 02/09/25 History metformin 1,000 mg tablet 1,000 mg PO BID 03/25/13 02/09/25 History aspirin 81 mg tablet,delayed 81 mg PO DAILY@0800 07/06/13 02/09/25 History release fenofibrate nanocrystallized 145 145 mg PO QHS 07/06/13 02/09/25 History mg tablet atorvastatin 40 mg tablet (Lipitor) 40 mg PO QDAY 01/02/25 02/09/25 History empagliflozin 25 mg tablet 25 mg PO QAM 01/02/25 02/09/25 History glipizide 10 mg tablet 10 mg PO QDAY 01/02/25 02/09/25 History insulin glargine 100 unit/mL 10 unit subcut QPM 01/02/25 02/10/25 05:00 History subcutaneous solution (Lantus U-100 Insulin) lisinopril 20 1 tab PO QDAY 01/02/25 02/09/25 History mg-hydrochlorothiazide 12.5 mg tablet Allergy/AdvReac Type Severity Reaction Status Date / Time No Known Allergies Allergy Verified 02/09/25 09:48 Family History (Updated 01/02/25 @ 10:02 by Zena Clark) Father Heart disease Brother No problems noted. Surgical History (Updated 01/02/25 @ 10:01 by Zena Clark) Status post replacement of left shoulder joint S/P right knee arthroscopy S/P bilateral inguinal hernia repair Social History (Updated 01/02/25 @ 10:02 by Zena Clark) Smoking Status: Never smoker Smokeless tobacco user: chewing tobacco alcohol intake: never Patient's Goals Of Care . What would you like to achieve or improve as a result of your hospital stay?: , Vital Signs Vital Signs Vital Signs: 02/10/25 06:36 02/10/25 06:36 02/10/25 06:36 Temperature 97.1 F L Temperature Source Temporal Pulse Rate 86 Respiratory Rate 16 Respiratory Pattern Normal Blood Pressure 147/85 H Blood Pressure Mean 105 Blood Pressure Source Monitor Blood Pressure Position Semi-Fowlers Blood Pressure Location Right Arm Baseline BP 147/85 Pulse Ox 96 Oxygen Delivery Method Room Air Weight Weight: 163 lb 5.8 oz Body Mass Index (BMI) 27.8 Physical Exam Const alert, oriented x3 and no apparent distress Assessment & Plan Assessment/Plan (1) Colon cancer screening: PLAN: Plan Colonoscopy planned for this morning.
--- NOTE | 2025-02-10 07:09 | PCM.PRE.AN2 ---
ASA Classification* ASA Classification ASA Classification: 2 Assessment & Plan Anesthesia* Anesthesia Assessment Anesthesia Assessment: Discussed sedation and/or anesthesia options, risks, benefits, and alternatives with patient/parents/legal guardian/POA. Questions invited. The patient/parents/legal guardian/POA seems to understand and agrees to proceed with anesthesia plan. Reviewed the physical assessment, medical history, allergy history and patient home medications list prior to surgery/procedure/anesthetic and documented any changes. Performed airway and anesthesia risk assessments. Anesthesia Type Anesthesia Type: MAC History Source History Obtained from:: Patient and Chart Anesthesia Focused Assessment* Temperature: 97.1 F Pulse Rate: 86 Blood Pressure: 147/85 Respiratory Rate: 16 Pulse Ox: 96 Oxygen Delivery Method: Room Air Airway Assessment Mouth opens: >3 cm Mallampati Score: III Teeth Condition: Missing (Patient is missing several teeth. Rest are tight.) Neck Range of motion (ROM): Limited ROM (Somewhat Decreased) Labs Anesthesia Preop lab: CBC WBC, (4.4-11.0) 5.2 K/mm3 05/26/24, 08:34 RBC, (4.6-6.2) 4.94 M/mm3 05/26/24, 08:34 Hgb, (13.0-16.5) 13.9 g/dL 05/26/24, 08:34 Hct, (40-54) 41.0 % 05/26/24, 08:34 Plt Count, (150-450) 274 K/mm3 05/26/24, 08:34 CHEMISTRY Potassium, (3.5-5.1) 4.9 mmol/L 04/11/24, 12:30 Sodium, (136-145) 135 mmol/L L 04/11/24, 12:30 BUN, (7-18) 13 mg/dL 04/11/24, 12:30 Creatinine, (0.70-1.30) 1.00 mg/dL 04/11/24, 12:30 Glucose, (74-106) 406 mg/dL H 04/11/24, 12:30 POC Glucose, (70-110) 199 mg/dL H 01/24/14, 06:13 COAG Pre-Assessment Diagnosis/Proposed Procedure Planned Operative Procedure(s): Colonoscopy Anesthesia History Anesthesia History - home advisor: Anesthesia History - home advisor Hx Hospitalization No 02/09/25 09:56 Any Problems With Anesthesia No 02/09/25 09:56 Cholinesterase deficiency No 02/09/25 09:56 You/Your Family Experience No 02/09/25 09:56 fever (hyperthermia) with Relationship Recent Exposure to Contagious No 02/10/25 06:36 Disease Does patient have nerve No 02/09/25 09:56 stimulator Patient instructed to have device shut off --Does patient have Pacemaker No 02/10/25 06:36 or ICD? When Was Last Pacemaker Check QUESTION #4 FULL TEXT: You/Your Family Experience fever (hyperthermia) with Anesthesia Last Oral Intake Last Oral intake: Last Oral Intake NPO since 22:30 02/10/25 06:36 Meds taken in AM with sips of No 02/10/25 06:36 water? Meds patient instructed to take am of surgery PONV PONV - home advisor: PONV - home advisor Female No 02/09/25 09:56 HX of Motion Sickness No 02/09/25 09:56 HX of N/V After Surgery No 02/09/25 09:56 Non-Smoker Yes 02/09/25 09:56 Duration of Surgery greater No 02/09/25 09:56 than 60 minutes Number of Risk Factors 1 02/09/25 09:56 PONV Score Low Risk 02/09/25 09:56 Height & Weight Height & Weight: Anesthesia: Height & Weight Height 5 ft 4.17 in 02/10/25 06:36 Weight: 74.1 kg 02/10/25 06:36 Body Mass Index (BMI) 27.8 02/10/25 06:36 Respiratory Assessment Respiratory Assessment - home advisor: Respiratory Tract Infection Hx - home advisor Hx Respiratory Tract Infection No 02/09/25 09:56 STOP Sleep Apnea STOP Sleep Apnea - home advisor: STOP Sleep Apnea - home advisor Hx Hypertension Yes: ON MEDS -CONTROLLED 02/09/25 09:56 Hx Sleep Apnea No 02/09/25 09:56 CPAP No 01/24/14 09:36 BIPAP No 01/16/14 09:14 Do you snore loudly (louder No 02/09/25 09:56 than talking or can be heard Do you often feel tired/ No 02/09/25 09:56 fatigued/ sleepy during daytime? Has anyone observed you stop No 02/09/25 09:56 breathing during sleep? STOP Results Negative 02/09/25 09:56 QUESTION #5 FULL TEXT : Do you snore loudly (louder than talking or can be heard through closed doors)? 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 Specify any problems Hx of Preganancy in last 3 N/A 02/09/25 09:56 Months Nurse Filling Out Transfusion JZOLLINGE 02/09/25 09:56 & Questions: Date: 02/09/25 02/09/25 09:56 Time: 09:58 02/09/25 09:56 Patient unable to answer at this time (ie. confused, unrespo /Reproduction History /Reproductive History - home advisor: /Reproductive Hx- home advisor Hx Now No 02/09/25 09:56 Gestational Age (in weeks): EDC: Hx Hx Para Hx Section SAB No 02/09/25 09:56 Does the father of the baby or his family experience fever w Father of the baby Malignant Hypertension history comment Active Medications Active Medications: Current Medications Generic Name Dose Route Start Last Admin Trade Name Freq PRN Reason Stop Dose Admin Lactated Ringer's 1,000 mls @ 15 mls/hr 02/10/25 06:30 02/10/25 06:46 IV 15 mls/hr .Q48H DOTTIE Administration PFSH Medical History Wears glasses Rash Arthritis Dietary restriction Non-smoker Colon cancer screening HTN (hypertension) Diabetes High cholesterol Home Medications ?Medication ?Instructions ?Recorded ?Last Taken ?Type atenolol 25 mg tablet 25 mg PO DAILY 03/25/13 02/09/25 History metformin 1,000 mg tablet 1,000 mg PO BID 03/25/13 02/09/25 History aspirin 81 mg tablet,delayed 81 mg PO DAILY@0800 07/06/13 02/09/25 History release fenofibrate nanocrystallized 145 145 mg PO QHS 07/06/13 02/09/25 History mg tablet atorvastatin 40 mg tablet (Lipitor) 40 mg PO QDAY 01/02/25 02/09/25 History empagliflozin 25 mg tablet 25 mg PO QAM 01/02/25 02/09/25 History glipizide 10 mg tablet 10 mg PO QDAY 01/02/25 02/09/25 History insulin glargine 100 unit/mL 10 unit subcut QPM 01/02/25 02/10/25 05:00 History subcutaneous solution (Lantus U-100 Insulin) lisinopril 20 1 tab PO QDAY 01/02/25 02/09/25 History mg-hydrochlorothiazide 12.5 mg tablet Allergy/AdvReac Type Severity Reaction Status Date / Time No Known Allergies Allergy Verified 02/09/25 09:48 Family History Father Heart disease Brother No problems noted. Surgical History Status post replacement of left shoulder joint S/P right knee arthroscopy S/P bilateral inguinal hernia repair Social History Smoking Status: Never smoker Smokeless tobacco user: chewing tobacco alcohol intake: never Review of Systems (Anesthesia) ROS Narrative System reviewed and no additional complaints, except as documented.
[2025-02-10] MEDS: Lidocaine 1% (5 ml sdv) 5 ML Vial 4 ML IV (07:19)
--- NOTE | 2025-02-10 07:30 | COLBX_PTH ---
PATIENT: LAMBERTO TEJADA LOC: EN U#:[id number] AGE/SX: 70/M ROOM: RE02/10/[address]: Dr. Yordan Silveira MD : 1955 BED: DIS: 02/10/2025 SPEC #: [id number] RECD: 02/10/25 09:57 STATUS: KETAN ONEIDA #: [id number] NORMA: 02/10/25 07:[address]: Yordan Silveira DEPT: SURGICAL PATHOLOGY RECD BY: Gigi Maurer ENTERED: 02/10/25 11:15 SP TYPE: COLON BX OTHR DR: [facility] Tissues: A - Rectosigmoid junction Procedures: Surgery Specimen Level IV HEADER OPERATION: Colonoscopy with polypectomy PRE-OP DIAGNOSIS: Colon cancer screening, polyp TISSUE SUBMITTED: A- Rectal sigmoid polyp MICROSCOPIC DIAGNOSIS A. Rectum / sigmoid, polyp, polypectomy: Tubulovillous adenoma, multiple fragments. MICROSCOPIC DESCRIPTION Slides are reviewed. GROSS DESCRIPTION A. Received in fixative is one container labeled with the patient's name and designated Rectal sigmoid polyp. The specimen consists of multiple irregular fragments of montes tissue that in aggregate measure 1.9 x 0.8 x 0.2 cm. The specimen is totally submitted in one cassette. PA 02/10/2025 CPT:43079
--- NOTE | 2025-02-10 08:06 | PCM.POST.ANE ---
Anesthesia: Postop Eval I Current Vital Signs Temperature: 97.3 F Pulse Rate: 82 Blood Pressure: 103/70 Respiratory Rate: 16 Pulse Ox: 96 Oxygen Delivery Method: Room Air Assessment Airway patent: Yes Spontaneous unlabored respirations: Yes Mental status: Awake and Calm nausea: No Vomiting: No Anesthesia Complication: No Fluid Hydration Crystalloid volume administer (ml): 700 Total IV fluid infused: 700 Progress Note Anesthesia document: Postop Eval 1 completed: Yes
--- NOTE | 2025-02-10 08:08 | OP.COLON_ITS ---
Patient Name: Kamari Rollins Procedure Date: 02/10/2025 7:09 AM Date of : 1955 Age: 70 Procedure: Colonoscopy Indications: Screening for colorectal malignant neoplasm Providers: Yordan Silveira MD Referring MD: [facility] Medicines: Monitored Anesthesia Care Patient Profile: Refer to note in patient chart for documentation of history and physical. Last Colonoscopy: none. The patient's first colonoscopy is today. Complications: No immediate complications. Estimated blood loss: Minimal. Procedure: Pre-Anesthesia Assessment: - Prior to the procedure, a History and Physical was performed, and patient medications and allergies were reviewed. The patient's tolerance of previous anesthesia was also reviewed. The risks and benefits of the procedure and the sedation options and risks were discussed with the patient. All questions were answered, and informed consent was obtained. Prior Anticoagulants: The patient has taken no anticoagulant or antiplatelet agents. ASA Grade Assessment: II - A patient with mild systemic disease. After reviewing the risks and benefits, the patient was deemed in satisfactory condition to undergo the procedure. After I obtained informed consent, the scope was passed under direct vision. Throughout the procedure, the patient's blood pressure, pulse, and oxygen saturations were monitored continuously. The adult colonoscope was introduced through the anus and advanced to the cecum, identified by appendiceal orifice and ileocecal valve. The ileocecal valve, appendiceal orifice, and rectum were photographed. The entire colon was not well visualized. The colonoscopy was performed with moderate difficulty due to poor bowel prep with stool present. The patient tolerated the procedure well. The quality of the bowel preparation was poor. Moderate Sedation: See the other procedure note for documentation of moderate sedation with intraservice time. Scope In: 7:23:11 AM Scope Withdrawal Time 0 hours 20 minutes 44 seconds Scope Out: 7:54:12 AM Total Procedure Duration Time 0 hours 31 minutes 1 second Findings: The perianal and digital rectal examinations were normal. A 15 mm polyp was found in the recto-sigmoid colon. The polyp was semi-pedunculated. The polyp was removed with a hot snare. Resection and retrieval were complete. Verification of patient identification for the specimen was done by the nurse using the patient's name, date and medical record number. The exam was otherwise without abnormality. Impression: - Preparation of the colon was poor. - One 15 mm polyp at the recto-sigmoid colon, removed with a hot snare. Resected and retrieved. - The examination was otherwise normal. Recommendation: - Discharge patient to home (ambulatory). - High fiber diet. - Await pathology results. - Repeat colonoscopy in 6 months because the bowel preparation was suboptimal. - Return to my office PRN. - Continue present medications. Procedure Code(s): --- Professional --- 93197, Colonoscopy, flexible; with removal of tumor(s), polyp(s), or other lesion(s) by snare technique Diagnosis Code(s): --- Professional --- D12.7, Benign neoplasm of rectosigmoid junction Z12.11, Encounter for screening for malignant neoplasm of colon CPT copyright 2021 [employer]. All rights reserved. The codes documented in this report are preliminary and upon integrated circuit design engineer review may be revised to meet current compliance requirements. Yordan Silveira MD 02/10/2025 8:08:11 AM This report has been signed electronically. Number of Addenda: 0 Note Initiated On: 02/10/2025 7:09 AM
--- NOTE | 2025-02-10 08:08 | OP.PROVAT_ITS ---
02/10/2025 [facility] Re : Colonoscopy procedure for [facility] This procedure was performed on Monday, February 10, 2025. My impressions and recommendations are as follows: Impressions : - Preparation of the colon was poor. - One 15 mm polyp at the recto-sigmoid colon, removed with a hot snare. Resected and retrieved. - The examination was otherwise normal. Recommendations : - Discharge patient to home (ambulatory). - High fiber diet. - Await pathology results. - Repeat colonoscopy in 6 months because the bowel preparation was suboptimal. - Return to my office PRN. - Continue present medications. My findings are described in the full procedure note, which is enclosed. If I can be of further assistance, please feel free to contact me at . Sincerely, Yordan Silveira MD 02/10/2025 8:08:11 AM This report has been signed electronically.
--- NOTE | 2025-02-10 10:19 | POSTOPAN2_ITS ---
Anesthesia Postop Eval I Sum Postop Eval Completion status Anesthesia document: Postop Eval 1 completed: Yes Anesthesia Postop Eval I Summary Anesthesia Postop Eval I Summary: Anesthesia Postop Eval I: Assessment Summary Airway patent Yes 02/10/25 08:07 PRODUCTION FLOATER.HALLEOBDanisha Spontaneous unlabored Yes 02/10/25 08:07 [place] FLO[place] respirations Mental status Awake,Calm 02/10/25 08:07 PRODUCTION FLOATER.ELINA nausea No 02/10/25 08:07 PRODUCTION FLOATER.ELINA Vomiting No 02/10/25 08:07 PRODUCTION FLOAT[place] Anesthesia Postop Eval I: Fluid Summary Crystalloid volume administer 700 02/10/25 08:07 PRODUCTION FLOATER.ELINA (ml) Colloids volume administered ( ml) Blood Product volume administered (ml) Total IV fluid infused 700 02/10/25 08:07 PRODUCTION FLOAT[place] Anesthesia Postop Eval I: Summary Notes Anesthesia Complication No 02/10/25 08:07 MALLORY Anesthesia Complication Comment: Post-operative progress note Anesthesia: Postop Eval II Evaluation Mental status: Awake and Calm Pain Level: 0 nausea: No Vomiting: No Complications Anesthesia Complication: No
--- NOTE | 2025-02-10 10:19 | PCM.POSTANE2 ---
Anesthesia Postop Eval I Sum Postop Eval Completion status Anesthesia document: Postop Eval 1 completed: Yes Anesthesia Postop Eval I Summary Anesthesia Postop Eval I Summary: Anesthesia Postop Eval I: Assessment Summary Airway patent Yes 02/10/25 08:07 TRANSITION ADVISOR.HALLEOBDanisha Spontaneous unlabored Yes 02/10/25 08:07 TRANSITION [place] respirations Mental status Awake,Calm 02/10/25 08:07 TRANSITION ADVISOR.ELINA nausea No 02/10/25 08:07 TRANSITION ADVISOR.ELINA Vomiting No 02/10/25 08:07 TRANSITION [place] Anesthesia Postop Eval I: Fluid Summary Crystalloid volume administer 700 02/10/25 08:07 TRANSITION ADVISOR.ELINA (ml) Colloids volume administered ( ml) Blood Product volume administered (ml) Total IV fluid infused 700 02/10/25 08:07 TRANSITION ADVIS[place] Anesthesia Postop Eval I: Summary Notes Anesthesia Complication No 02/10/25 08:07 MALLORY Anesthesia Complication Comment: Post-operative progress note Anesthesia: Postop Eval II Evaluation Mental status: Awake and Calm Pain Level: 0 nausea: No Vomiting: No Complications Anesthesia Complication: No
== END 2025-02-10 08:44 | disposition home or self-care (01) ==
LOC: EN 06:17 → AC 06:18
PROVIDERS: Visit Provider Surgery
PROC: 0DJD8ZZ Inspection of Lower Intestinal Tract, Via Natural or Artificial Opening Endoscopic (ICD-10-PCS; CPT 45378; principal; 2025-02-10 07:25)
DX: Z12.11 Encounter for screening for malignant neoplasm of colon (principal); E11.9 Type 2 diabetes mellitus without complications; Z79.4 Long term (current) use of insulin; I10 Essential (primary) hypertension; E78.00 Pure hypercholesterolemia, unspecified; Z79.84 Long term (current) use of oral hypoglycemic drugs; Z79.82 Long term (current) use of aspirin; Z79.899 Other long term (current) drug therapy; D12.8 Benign neoplasm of rectum
CPT/HCPCS: 45385; 82962; 88305